=== PATIENT | female | born 2000 | race Caucasian/White ===

== ENCOUNTER 2018-01-25 06:21 | Emergency (ER) | payer SELFPAY ==
[2018-01-25] MEDS ORDERED: BUPIVACAINE 0.5% PF 10 ML VIAL ONE (07:00)
[2018-01-25] MEDS ORDERED: TETANUS & DIPHTHERIA TOX,ADULT 0.5 ML VIAL ONE (07:00)
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
--- NOTE | 2018-01-25 09:59 | ER ---
Nurse's Notes [facility] Name: Amber Owusu Age: 17 yrs Sex: Female : 2000 Arrival Date: 01/25/2018 Time: 06:25 Bed 8 Private MD: Diagnosis: Finger Laceration Presentation: 01/25 06:40 Presenting complaint: Patient states: Reports she cut her left ring finger when she was ea cutting lettuce. Transition of care: patient was not received from another setting of care. Complicating Factors: There are no complicating factors for this patient. Onset of symptoms was January 25, 2018. Risk Assessment: Do you want to hurt yourself or someone else? Patient reports no desire to harm self or others. Initial Sepsis Screen: Does the patient meet any 2 criteria? No. Patient's initial sepsis screen is negative. Does the patient have a suspected source of infection? No. Patient's initial sepsis screen is negative. Care prior to arrival: None. 06:40 Method Of Arrival: Ambulatory ea 06:40 Acuity: MARIPOSA 4 ea Triage Assessment: 06:44 General: Appears in no apparent distress. Behavior is appropriate for age, anxious. ea Pain: Complains of pain in palmar aspect of distal phalanx of left ring finger Pain currently is 8 out of 10 on a pain scale. Quality of pain is described as aching. EENT: No signs and/or symptoms were reported regarding the EENT system. Neuro: Level of Consciousness is awake, alert, obeys commands, Oriented to person, place, time, situation. Cardiovascular: Patient's skin is warm and dry. Respiratory: Airway is patent Respiratory effort is even, unlabored, Respiratory pattern is regular, symmetrical. GI: No signs and/or symptoms were reported involving the gastrointestinal system. : No signs and/or symptoms were reported regarding the genitourinary system. Derm: Skin is pink, warm \T\ dry. Injury Description: Laceration sustained to palmar aspect of distal phalanx of left ring finger is 0.5 to 2.5 cm long. Historical: - Allergies: 06:44 No Known Allergies; ea - Home Meds: 06:44 None [Active]; ea - PMHx: 06:44 None; ea - PSHx: 06:44 None; ea - Immunization history:: Last tetanus immunization: unknown. - Social history:: Smoking status: Patient/guardian denies using tobacco. - Ebola Screening: : No symptoms or risks identified at this time. Screenin:51 Abuse screen: Denies threats or abuse. Nutritional screening: No deficits noted. ea Tuberculosis screening: No symptoms or risk factors identified. Fall Risk None identified. Assessment: 06:53 Reassessment: See triage assessment.. Musculoskeletal: Circulation, motion, and ea sensation intact. Injury Description: Laceration sustained to palmar aspect of distal phalanx of left ring finger. 07:30 Reassessment: Patient appears in no apparent distress at this time. Patient and/or ph family updated on plan of care and expected duration. Pain level reassessed. Patient is alert, oriented x 3, equal unlabored respirations, skin warm/dry/pink. ERP at bedside for laceration repair. 08:07 Reassessment: Patient appears in no apparent distress at this time. Patient and/or ph family updated on plan of care and expected duration. Pain level reassessed. Patient is alert, oriented x 3, equal unlabored respirations, skin warm/dry/pink. Pt d/c home w/ family. Vital Signs: 06:45 BP 124 / 106; Pulse 76; Resp 20; Temp 97.4(O); Pulse Ox 100% ; Weight 77.56 kg; Height ea 5 ft. 7 in. (170.18 cm); Pain 8/10; 06:45 Body Mass Index 26.78 (77.56 kg, 170.18 cm) ea ED Course: 06:25 Patient arrived in ED. ds1 06:31 Grzegorz Hauser PA is PHCP. [facility] 06:31 Reji Simeon MD is Attending Physician. [facility] 06:38 Betty Dewitt RN is Primary Nurse. ea 06:40 Patient has correct armband on for positive identification. Placed in gown. Bed in low ea position. Call light in reach. Side rails up X 1. 06:40 Arm band placed on right wrist. Patient placed in an exam room, in the treatment room, ea on a stretcher, on pulse oximetry. 06:42 Triage completed. ea 07:30 Assist provider with laceration repair on palmar aspect of distal phalanx of left ring ph finger that was 2.5 cm. or less using sutures. Set up tray. Performed by Grzegorz BENDER Dressed with band aid, Patient tolerated well. 08:07 Patient did not have IV access during this emergency room visit. ph Administered Medications: 07:01 Drug: Tetanus-Diphtheria Toxoid Adult 0.5 ml {Transcribing Operator Head: [employer]. Exp: alex 03/20/2020. Lot #: [id number]. } Route: IM; Site: left deltoid; 07:30 Follow up: Response: No adverse reaction ph 07:20 Drug: Marcaine (0.5 %) 10 ml Volume: 10 ml; Route: Infiltration; ph 07:30 Follow up: Response: No adverse reaction; Pain is decreased ph Outcome: 07:42 Discharge ordered by . elpidio 08:09 Discharged to home ambulatory, with family. ph 08:09 Condition: good 08:09 Discharge instructions given to patient, Instructed on discharge instructions, follow up and referral plans. Demonstrated understanding of instructions, follow-up care. 08:11 Patient left the ED. ph Signatures: Grzegorz Hauser PA PA jmm Sanford, Demi ds1 Mira Del Valle, RN RN Betty Dewitt, CAROL MEDINA ea
[2018-01-25 10:06] VITALS: BP 124/106; TEMP 97.4; O2SAT 100
== END 2018-01-25 08:11 | disposition home or self-care (01) ==
LOC: ER 06:21
PROC: 0JQK0ZZ Repair Left Hand Subcutaneous Tissue and Fascia, Open Approach (ICD-10-PCS; principal; 2018-01-25)
DX: S61.215A Laceration without foreign body of left ring finger without damage to nail, initial encounter (principal); W26.0XXA Contact with knife, initial encounter; Y93.89 Activity, other specified; Y92.010 Kitchen of single-family (private) house as the place of occurrence of the external cause
CPT/HCPCS: 90714; 99283

== ENCOUNTER 2019-10-31 21:36 | Emergency (ER) | payer OTHER ==
--- OUTSIDE RECORDS SUMMARY | 2019-10-31 21:41 | XMS REPORT ---
:2000 Author Organization [facility] t Address [address] [place] [address] [place] [id number] Care Team Providers Name Role Phone Unavailable Unavailable Unavailable Problems This patient has no known problems. Allergies, Adverse Reactions, Alerts This patient has no known allergies or adverse reactions. Medications This patient has no known medications.
[2019-10-31] MEDS ORDERED: WATER FOR INJ,STERILE 10 ML ONE (21:49)
[2019-10-31] MEDS ORDERED: ZIPRASIDONE MESYLA 20 MG/VIAL IM ONE (21:49)
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
--- NOTE | 2019-11-01 12:59 | RAD REPORT ---
EXAM DESCRIPTION: CT - Head C Spine Mpr Wo Con - 11/01/2019 5:35 am CLINICAL HISTORY: The patient is 18 years old and is Female; PAIN TECHNIQUE: Axial computed tomography images of the head/brain and cervical spine without intravenous contrast. Sagittal and coronal reformatted images were created and reviewed. This CT exam was pe rformed using one or more of the following dose reduction techniques: automated exposure control, a djustment of the mA and/or kV according to patient size, and/or use of iterative reconstruction techn ique. DLP: 846 and 312 mGy*cm COMPARISON: None. FINDINGS: BRAIN: Unremarkable. No hemorrhage. No significant white matter disease. No edema . VENTRICLES: Unremarkable. No ventriculomegaly. SKULL: No acute fracture. SINUSES: Unremarkable as visualized. No acute sinusitis. MASTOID AIR CELLS: Unremarkable as visualized. No mastoid effusion. VERTEBRAE: Reversal of cervical lordosis centered at C5. No acute fracture. DISCS/SPINAL CANAL/NEURAL FORAMINA: No acute findings. No spinal canal stenosis. SOFT TISSUES: Right frontal hematoma. Minimal left frontal swelling. LUNG APICES: Apical lung zones are clear. IMPRESSION: 1. No acute intracranial abnormality. 2. No acute cervical spine fracture or subluxation. 3. Right frontal hematoma. Minimal left frontal swelling. 4. Reversal of cervical lordosis which may be due to muscle spasm. Electronically signed by: Justin Stephens DO 10/31/2019 10:53 PM CDT Due to temporary technical issues with the PACS/Fluency reporting system, reports are being signed by the in house radiologist as a courtesy to ensure prompt reporting. The interpreting radiologist is f ully responsible for the content of the report.
== END 2019-10-31 23:32 ==
LOC: ER 21:36
DX: R45.851 Suicidal ideations (principal); F31.9 Bipolar disorder, unspecified; W22.8XXA Striking against or struck by other objects, initial encounter; Y93.89 Activity, other specified; Y92.89 Other specified places as the place of occurrence of the external cause; Z72.0 Tobacco use
CPT/HCPCS: 70450; 72125; 96372; 99284; J3486

== ENCOUNTER 2020-04-04 16:50 | Emergency (ER) | payer OTHER ==
[2020-04-04] MEDS ORDERED: MORPHINE 4 MG/ML SYR ONE (19:52)
[2020-04-04] MEDS ORDERED: NA CHLORIDE 0.9% 1,000 ML ONE (19:52)
[2020-04-04] MEDS ORDERED: ONDANSETRON 4 MG/2 ML VIAL ONE (19:52)
[2020-04-04 20:00] LABS: Absolute Lymphocytes (CBC) 1.4 K/uL (0.7-4.9); Basophils % 0.3 % (0-1.3); Hematocrit 43.7 % (36.0-45.0); Lymphocytes % 7.9 % (15.3-44.8); MPV 9.2 fL (7.6-11.3); RBC Red Blood Cell Count 4.61 M/uL (3.86-4.86)
[2020-04-04 20:06] LABS: Urine Blood 1+ (NEG); Urine Glucose NEGATIVE (NEG); Urine Protein NEGATIVE (NEG); Urine Specific Gravity 1.025 (1.005-1.030)
[2020-04-04 20:18] LABS: ALT/SGPT 14 U/L (12-78); AST/SGOT 9 U/L (15-37); Albumin 4.6 g/dL (3.4-5.0); Alkaline Phosphatase 77 U/L (45-117); BUN Blood Urea Nitrogen 6 mg/dL (7-18); Bicarbonate 26 mmol/L (21-32); Bilirubin Direct 0.2 mg/dL (0-0.2); Bilirubin Total 0.6 mg/dL (0.2-1.0); Glucose Level 86 mg/dL (74-106); Lipase 40 U/L (73-393); Potassium 3.8 mmol/L (3.5-5.1); Protein, Total 8.2 g/dL (6.4-8.2); Sodium Level 138 mmol/L (136-145)
--- NOTE | 2020-04-04 21:06 | RAD REPORT ---
EXAM DESCRIPTION: CT - Stone Protocol - 04/04/2020 8:31 pm CLINICAL HISTORY: Abdominal pain./flank pain COMPARISON: 2012 TECHNIQUE: Computed axial tomography of the abdomen pelvis was obtained without oral or IV contrast. Lack of IV and oral contrast limits evaluation of solid organs, bowel, and vessels. Coronal reformat irving images were obtained and reviewed. All CT scans are performed using dose optimization technique as appropriate and may include automated exposure control or mA/KV adjustment according to patient size. FINDINGS: Small bilateral renal calculi. Minimal right hydronephrosis. 1 millimeter calcification ri ght pelvis. The right ureter is not well visualized in this region. The liver, spleen, pancreas and adrenals appear grossly normal There is no evidence of diverticulitis. The appendix appears normal. A small amount free fluid the pe lvis IMPRESSION: Small bilateral renal calculi. Minimal right hydronephrosis. 1 millimeter calcification right pelvis. It is uncertain if this repres ents a distal ureteral calculus as the right ureter is not well visualized in this region. Another co nsideration is that this represents a phlebolith
[2020-04-04] MEDS ORDERED: CEFTRIAXONE/SWI 1gm 1 GM/10 ML SYR ONE (21:07)
[2020-04-04 21:08] LABS: Blood Morphology Comment NOT SEEN (NOT SEEN); Platelet Estimate ADEQ; White Blood Cell Scan OK (OK)
--- NOTE | 2020-04-04 22:27 | ER ---
Nurse's Notes [facility] Name: Amber Owusu Age: 19 yrs Sex: Female : 2000 Arrival Date: 04/04/2020 Time: 16:50 Bed 14 Private MD: Diagnosis: Pyelonephritis;Kidney Stones;Sciatica Presentation: 04/04 17:04 Chief complaint: Patient states: "I just got some antibiotics from the tele doc and I jd3 don't feel like I am getting any better. also about a week ago I think I pulled a hamstring. It is getting harder to walk and even sit straight.". Coronavirus screen: At this time, the client does not indicate any symptoms associated with coronavirus-19. Ebola Screen: Patient negative for fever greater than or equal to 101.5 degrees Fahrenheit, and additional compatible Ebola Virus Disease symptoms. Initial Sepsis Screen: Does the patient meet any 2 criteria? No. Patient's initial sepsis screen is negative. Does the patient have a suspected source of infection? No. Patient's initial sepsis screen is negative. Risk Assessment: Do you want to hurt yourself or someone else? Patient reports no desire to harm self or others. Onset of symptoms was March 31, 2020. 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 - Social history:: Smoking status: Reported history of juuling and/or vaping. Screenin:25 Abuse screen: Denies threats or abuse. Denies injuries from another. Nutritional ca1 screening: No deficits noted. Tuberculosis screening: No symptoms or risk factors identified. Fall Risk IV access (20 points). Assessment: 19:25 General: Appears in no apparent distress. uncomfortable, Behavior is calm, cooperative, ca1 appropriate for age. Pain: Complains of pain in right lower quadrant Pain radiates to right low back Pain currently is 8 out of 10 on a pain scale. Pain began 5 days Is intermittent. Neuro: Level of Consciousness is awake, alert, obeys commands, Oriented to person, place, time, situation. Cardiovascular: Heart tones S1 S2 present Capillary refill < 3 seconds Patient's skin is warm and dry. Respiratory: Airway is patent Respiratory effort is even, unlabored, Respiratory pattern is regular, symmetrical, Breath sounds are clear bilaterally. GI: Abdomen is round non-distended, Bowel sounds present X 4 quads. Abd is soft and non tender X 4 quads. Reports nausea. : Urine is cloudy, Reports burning with urination, urgency, urinary frequency. EENT: No signs and/or symptoms were reported regarding the EENT system. Derm: Skin is intact, is healthy with good turgor. Musculoskeletal: Circulation, motion, and sensation intact. Capillary refill < 3 seconds. 20:57 Reassessment: Patient appears in no apparent distress at this time. Patient and/or ca1 family updated on plan of care and expected duration. Pain level reassessed. Patient is alert, oriented x 3, equal unlabored respirations, skin warm/dry/pink. 21:43 Reassessment: Patient appears in no apparent distress at this time. Patient and/or ca1 family updated on plan of care and expected duration. Pain level reassessed. Patient is alert, oriented x 3, equal unlabored respirations, skin warm/dry/pink. 22:41 Reassessment: Patient appears in no apparent distress at this time. Patient and/or jd3 family updated on plan of care and expected duration. Pain level reassessed. Patient is alert, oriented x 3, equal unlabored respirations, skin warm/dry/pink. Patient states feeling better. Vital Signs: 17:07 BP 124 / 84; Pulse 86; Resp 17 S; Temp 97.7(O); Pulse Ox 99% on R/A; Weight 70.31 kg jd3 (R); Height 5 ft. 8 in. (172.72 cm) (R); Pain 10/10; 19:42 BP 125 / 81; Pulse 79; Resp 15 S; Pulse Ox 99% on R/A; ca1 20:57 BP 120 / 87; Pulse 84; Resp 15 S; Pulse Ox 98% on R/A; ca1 21:43 BP 109 / 66; Pulse 89; Resp 18 S; Pulse Ox 99% on R/A; ca1 17:07 Body Mass Index 23.57 (70.31 kg, 172.72 cm) jd3 ED Course: 16:50 Patient arrived in ED. as 17:06 Triage completed. jd3 17:09 Arm band placed on. jd3 19:15 Heather Zheng RN is Primary Nurse. ca1 19:18 Kamran Singleton MD is Attending Physician. mh7 19:30 Patient has correct armband on for positive identification. Placed in gown. Bed in low ca1 position. Call light in reach. Side rails up X 1. Pulse ox on. NIBP on. 19:52 Initial lab(s) drawn, by me, sent to lab. Inserted saline lock: 20 gauge in right ca1 antecubital area, using aseptic technique. Blood collected. 19:52 No provider procedures requiring assistance completed. ca1 20:31 Stone Protocol In Process Unspecified. EDMS 22:25 Lisa Watkins MD is Referral Physician. 7 22:41 IV discontinued, intact, bleeding controlled, No redness/swelling at site. Pressure jd3 dressing applied. Administered Medications: 19:52 Drug: NS 0.9% 1000 ml Route: IV; Rate: 1000 ml; Site: right antecubital; ca1 20:53 Follow up: Response: No adverse reaction; IV Status: Completed infusion; IV Intake: ca1 1000ml 19:54 Drug: Zofran (Ondansetron) 4 mg Route: IVP; Site: right antecubital; ca1 20:53 Follow up: Response: No adverse reaction; Nausea is decreased ca1 19:56 Drug: morphine 4 mg {Note: rass 0.} Route: IVP; Site: right antecubital; ca1 20:53 Follow up: Response: No adverse reaction; Pain is decreased; RASS: Alert and Calm (0) ca1 20:57 Drug: Rocephin - (cefTRIAXone) 1 grams Route: IVPB; Infused Over: 30 mins; Site: right ca1 antecubital; 21:50 Follow up: Response: No adverse reaction; IV Status: Completed infusion jd3 Intake: 20:53 IV: 1000ml; Total: 1000ml. ca1 Outcome: 22:26 Discharge ordered by . 7 22:41 Discharged to home ambulatory, with friend. jd3 22:41 Condition: stable 22:41 Discharge instructions given to patient, friend, Instructed on discharge instructions, follow up and referral plans. medication usage, Demonstrated understanding of instructions, follow-up care, medications, Prescriptions given X 5 22:43 Patient left the ED. jd3 Signatures: Dispatcher [employer] Isabella Hoff Jonathon, RN RN jd3 Heather Zheng RN RN ca1 Kamran Singleton MD MD mh7
--- NOTE | 2020-04-04 22:27 | EDPHYS ---
Physician Documentation [facility] Name: Amber Owusu Age: 19 yrs Sex: Female : 2000 Arrival Date: 04/04/2020 Time: 16:50 Bed 14 Private MD: ED Physician Kamran Singleton HPI: 04/04 20:23 This 19 yrs old Female presents to ER via Ambulatory with complaints of Thigh mh7 Pain. 20:23 The patient presents with pain that is acute. The symptoms are located in the right mh7 flank. Onset: The symptoms/episode began/occurred 5 day(s) ago. The pain radiates to the right posterior thigh. Associated signs and symptoms: Pertinent positives: abdominal pain, dysuria, nausea, Pertinent negatives: chest pain, constipation, fever, headache, hematuria, incontinence, numbness, tingling, urinary retention, vomiting, weakness. The problem was sustained from twisting, doing splits. Modifying factors: The patient symptoms are alleviated by nothing, the patient symptoms are aggravated by movement, walking. Severity of symptoms: At their worst the symptoms were moderate, yesterday, in the emergency department the symptoms are unchanged. Patient states that she started having right buttock area pain that radiates to right thigh area after doing splits 5 days ago. She also reports having right lower back area pain and pain with urination that started 2 days ago. She started taking antibiotics yesterday without much improvement. She reports a history of sciatica and also frequent UTI's in the past.. 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 - Social history:: Smoking status: Reported history of juuling and/or vaping. ROS: 20:23 Constitutional: Negative for fever, chills, and weight loss, Eyes: Negative for injury, mh7 pain, redness, and discharge, ENT: Negative for injury, pain, and discharge, Neck: Negative for injury, pain, and swelling, Cardiovascular: Negative for chest pain, palpitations, and edema, Respiratory: Negative for shortness of breath, cough, wheezing, and pleuritic chest pain, Skin: Negative for injury, rash, and discoloration, Neuro: Negative for headache, weakness, numbness, tingling, and seizure, Psych: Negative for depression, anxiety, suicide ideation, homicidal ideation, and hallucinations, Allergy/Immunology: Negative for hives, rash, and allergies, Endocrine: Negative for neck swelling, polydipsia, polyuria, polyphagia, and marked weight changes, Hematologic/Lymphatic: Negative for swollen nodes, abnormal bleeding, and unusual bruising. Exam: 20:23 Head/Face: Normocephalic, atraumatic. Eyes: Pupils equal round and reactive to light, mh7 extra-ocular motions intact. Lids and lashes normal. Conjunctiva and sclera are non-icteric and not injected. Cornea within normal limits. Periorbital areas with no swelling, redness, or edema. Neck: Trachea midline, no thyromegaly or masses palpated, and no cervical lymphadenopathy. Supple, full range of motion without nuchal rigidity, or vertebral point tenderness. No Meningismus. Chest/axilla: Normal chest wall appearance and motion. Nontender with no deformity. No lesions are appreciated. Cardiovascular: Regular rate and rhythm with a normal S1 and S2. No gallops, murmurs, or rubs. Normal PMI, no JVD. No pulse deficits. Respiratory: Lungs have equal breath sounds bilaterally, clear to auscultation and percussion. No rales, rhonchi or wheezes noted. No increased work of breathing, no retractions or nasal flaring. 20:23 Skin: Warm, dry with normal turgor. Normal color with no rashes, no lesions, and no evidence of cellulitis. MS/ Extremity: Pulses equal, no cyanosis. Neurovascular intact. Full, normal range of motion. Neuro: Awake and alert, GCS 15, oriented to person, place, time, and situation. Cranial nerves II-XII grossly intact. Motor strength 5/5 in all extremities. Sensory grossly intact. Cerebellar exam normal. Normal gait. Psych: Awake, alert, with orientation to person, place and time. Behavior, mood, and affect are within normal limits. 20:23 Constitutional: The patient appears in no acute distress, alert, awake, uncomfortable. 20:23 Abdomen/GI: Inspection: abdomen appears normal, Bowel sounds: normal, in all quadrants, Palpation: mild abdominal tenderness, in the suprapubic area, Rectal exam: the exam is deferred, because of patient request, Indicators: McBurney's point is not tender, Spaulding's sign is negative, Rovsing's sign is negative, Obturator sign is negative, Psoas sign is negative, Liver: no appreciated palpable abnormalities, Hernia: not appreciated. 20:23 Back: pain, that is mild, ROM is painful, with all movement, normal spinal alignment noted, CVA tenderness, that is mild, is noted on the right, muscle spasm, is not present, Straight leg raises: right lower extremity illicits pain, at 45 degrees. Vital Signs: 17:07 BP 124 / 84; Pulse 86; Resp 17 S; Temp 97.7(O); Pulse Ox 99% on R/A; Weight 70.31 kg jd3 (R); Height 5 ft. 8 in. (172.72 cm) (R); Pain 10/10; 19:42 BP 125 / 81; Pulse 79; Resp 15 S; Pulse Ox 99% on R/A; ca1 20:57 BP 120 / 87; Pulse 84; Resp 15 S; Pulse Ox 98% on R/A; ca1 21:43 BP 109 / 66; Pulse 89; Resp 18 S; Pulse Ox 99% on R/A; ca1 17:07 Body Mass Index 23.57 (70.31 kg, 172.72 cm) jd3 MDM: 19:43 Patient medically screened. 7 22:23 Differential diagnosis: chronic back pain, Pyelonephritis Ureterolithiasis mh7 Sciatica. Data reviewed: vital signs, nurses notes, old medical records, lab test result(s), CBC, electrolytes, urinalysis, UPT: radiologic studies, CT scan. Data interpreted: Pulse oximetry: on room air is 99 %. Interpretation: normal. Counseling: I had a detailed discussion with the patient and/or guardian regarding: the historical points, exam findings, and any diagnostic results supporting the discharge/admit diagnosis, lab results, radiology results, the need for outpatient follow up, to return to the emergency department if symptoms worsen or persist or if there are any questions or concerns that arise at home. Response to treatment: the patient's symptoms have resolved after treatment, the patient's blood pressure is in an acceptable range, mental status has returned to baseline, the patient no longer shows bradycardia, the patient is not short of breath, the patient is not tachycardic, the patient's pain is gone, the patient's temperature has normalized, patient is well hydrated. 04/04 19:45 Order name: Basic Metabolic Panel; Complete Time: 20:33 mh7 04/04 19:45 Order name: CBC with Diff; Complete Time: 21:15 mh7 04/04 19:45 Order name: Hepatic Function; Complete Time: 20:33 mh7 04/04 19:45 Order name: Lipase; Complete Time: 20:33 mh7 04/04 19:56 Order name: Urine Culture ea 04/04 20:01 Order name: Urine --Ancillary (enter results); Complete Time: 20:33 tt3 04/04 20:01 Order name: Urine Dipstick--Ancillary (enter results); Complete Time: 20:33 tt3 04/04 20:20 Order name: Stone Protocol; Complete Time: 21:15 EDMS 04/04 21:08 Order name: CBC Smear Scan; Complete Time: 21:15 EDMS 04/04 19:45 Order name: IV Saline Lock; Complete Time: 19:53 mh7 04/04 19:45 Order name: Labs collected and sent; Complete Time: 19:53 mh7 04/04 19:45 Order name: Urine Dipstick-Ancillary (obtain specimen); Complete Time: 19:53 mh7 04/04 19:45 Order name: Urine Test (obtain specimen); Complete Time: 19:53 mh7 Administered Medications: 19:52 Drug: NS 0.9% 1000 ml Route: IV; Rate: 1000 ml; Site: right antecubital; ca1 20:53 Follow up: Response: No adverse reaction; IV Status: Completed infusion; IV Intake: ca1 1000ml 19:54 Drug: Zofran (Ondansetron) 4 mg Route: IVP; Site: right antecubital; ca1 20:53 Follow up: Response: No adverse reaction; Nausea is decreased ca1 19:56 Drug: morphine 4 mg {Note: rass 0.} Route: IVP; Site: right antecubital; ca1 20:53 Follow up: Response: No adverse reaction; Pain is decreased; RASS: Alert and Calm (0) ca1 20:57 Drug: Rocephin - (cefTRIAXone) 1 grams Route: IVPB; Infused Over: 30 mins; Site: right ca1 antecubital; 21:50 Follow up: Response: No adverse reaction; IV Status: Completed infusion jd3 Disposition: 04/04/20 22:26 Discharged to Home. Impression: Pyelonephritis, Kidney Stones, Sciatica. - Condition is Stable. - Discharge Instructions: Pyelonephritis, Adult, Arjv-su-Mked, Kidney Stones, [id number]-Jxdd, Sciatica, [id number]-[id number]. - Prescriptions for Zofran ODT 4 mg Oral tablet,disintegrating - place 1 tablet by TRANSLINGUAL route every 8 hours As needed; 10 tablet. Colace 100 mg Oral Tablet - take 1 tablet by ORAL route every 12 hours; 14 tablet. Ibuprofen 800 mg Oral Tablet - take 1 tablet by ORAL route every 8 hours As needed take with food; 15 tablet. Tylenol- Codeine #3 300-30 mg Oral Tablet - take 2 tablets by ORAL route every 6 hours As needed; 20 tablet. Cipro 500 mg Oral Tablet - take 1 tablet by ORAL route every 12 hours for 10 days; 20 tablet. - Work release form, Medication Reconciliation Form, Thank You Letter, Antibiotic Education, Prescription Opioid Use form. - Follow up: Private Physician; When: 1 - 2 days; Reason: Worsening of condition, Recheck today's complaints, Continuance of care, Re-evaluation by your physician. Follow up: Lisa Watkins MD; When: 1 - 2 days; Reason: Worsening of condition, Recheck today's complaints. - Problem is an acute exacerbation. - Symptoms have improved. Signatures: Dispatcher [employer] [facility] Andrew eD Paz RN RN jd3 Heather Zheng RN RN ca1 Kamran Singleton MD MD mh7 Corrections: (The following items were deleted from the chart) 20:20 19:56 Abdomen Pelvis Wo Con+CT.RAD.BRZ ordered. [facility] 22:43 22:26 04/04/2020 22:26 Discharged to Home. Impression: Pyelonephritis; Kidney Stones; jd3 Sciatica. Condition is Stable. Forms are Medication Reconciliation Form, Thank You Letter, Antibiotic Education, Prescription Opioid Use. Follow up: Private Physician; When: 1 - 2 days; Reason: Worsening of condition, Recheck today's complaints, Continuance of care, Re-evaluation by your physician. Follow up: Lisa Watkins; When: 1 - 2 days; Reason: Worsening of condition, Recheck today's complaints. Problem is an acute exacerbation. Symptoms have improved. mh7
[2020-04-04 23:05] VITALS: TEMP 97.7
[2020-04-04 23:13] VITALS: BP 109/66; O2SAT 99
--- OUTSIDE RECORDS SUMMARY | 2020-04-08 01:29 | XMS REPORT | Continuity of Care Document ---
:2000 Author Organization [facility] t Address [address] [place] [address] [place] [id number] Care Team Providers Name Role Phone Unavailable Unavailable Unavailable Problems This patient has no known problems. Allergies, Adverse Reactions, Alerts This patient has no known allergies or adverse reactions. Medications This patient has no known medications. Procedures This patient has no known procedures. Results This patient has no known results.
== END 2020-04-04 22:43 | disposition home or self-care (01) ==
LOC: ER 16:50
DX: N12 Tubulo-interstitial nephritis, not specified as acute or chronic (principal); M54.30 Sciatica, unspecified side; Z87.442 Personal history of urinary calculi; F31.9 Bipolar disorder, unspecified; F41.9 Anxiety disorder, unspecified; Z87.891 Personal history of nicotine dependence
CPT/HCPCS: 96365; 96361; 87088; 85025; 87086; 80048; 36415; 81025; 80076; 81003; 83690; 76377; 74176; 96375; 99284; J0696; J7030; J2405

== ENCOUNTER 2020-12-09 10:43 | Day surgery (SDC) | payer OTHER ==
[2020-12-08 16:39] LABS: Protime INR 0.99
[2020-12-08 16:41] LABS: Urine Appearance CLOUDY (Clear); Urine Bilirubin NEGATIVE (Negative); Urine Blood 2+ (Negative); Urine Color YELLOW (Yellow); Urine Glucose NEGATIVE (Negative); Urine Protein NEGATIVE (Negative); Urine pH 7.5 (5.0-7.0)
[2020-12-08 16:45] LABS: Urine Microscopic Reflex ORDER UMIC
[2020-12-08 16:45] LABS: Absolute Lymphocytes (CBC) 1.9 K/uL (0.7-4.9); BUN Blood Urea Nitrogen 11 mg/dL (7-18); Basophils % 0.5 % (0-1.3); Bicarbonate 29 mmol/L (21-32); Glucose Level 67 mg/dL (74-106); Hematocrit 37.8 % (36.0-45.0); Lymphocytes % 32.2 % (15.3-44.8); MPV 9.4 fL (7.6-11.3); Potassium 4.2 mmol/L (3.5-5.1); RBC Red Blood Cell Count 4.09 M/uL (3.86-4.86); Sodium Level 142 mmol/L (136-145)
[2020-12-08 16:51] LABS: Urine Bacteria <20 /HPF (<20); Urine RBC <5 /HPF (NONE SEEN)
--- NOTE | 2020-12-08 17:34 | RAD REPORT ---
EXAM DESCRIPTION: RAD - Chest Pa And Lat (2 Views) - 12/08/2020 5:25 pm CLINICAL HISTORY: Pre Op Chest pain. COMPARISON: <Comparisons> FINDINGS: The lungs are clear. The heart is normal in size. No displaced fractures. IMPRESSION: No acute or concerning finding suspected.
[2020-12-09] MEDS ORDERED: CEFAZOLIN/SWI 2gm 2 GM/20 ML SYR ONE (11:18)
[2020-12-09] MEDS ORDERED: Ringers Lactate 1,000 ML IV ONE (11:18)
[2020-12-09] MEDS ORDERED: propofoL 200 MG/20 ML VIAL IV ONE (11:26)
[2020-12-09] MEDS ORDERED: FENTANYL CITR 100 MCG/2 ML ONE (11:26)
[2020-12-09] MEDS ORDERED: ONDANSETRON 4 MG/2 ML VIAL ONE (11:27)
[2020-12-09] MEDS ORDERED: MIDAZOLAM HCL 2 MG/2 ML INJ ONE (11:27)
[2020-12-09] MEDS ORDERED: LIDOCAINE 1% MPF 5 ML VIAL ONE (11:32)
[2020-12-09] MEDS ORDERED: HYDROCODONE/APAP 5/325 MG TAB PO PRN (12:26)
[2020-12-09] MEDS ORDERED: PHENAZOPYRIDINE 100MG TAB PO ONE ×3 (12:26→13:31)
[2020-12-09] MEDS ORDERED: dexAMETHasone 10 MG/ML VIAL ONE (12:33)
[2020-12-09] MEDS ORDERED: KETOROLAC 30 MG/ML INJ ONE (12:34)
--- NOTE | 2020-12-09 12:36 | RAD REPORT ---
EXAM DESCRIPTION: RAD - Urethrocystogrphy Retrograde - 12/09/2020 12:25 pm CLINICAL HISTORY: ICD N 20.0 FINDINGS: 5 fluoroscopic spot images obtained. Fluoroscopy time minutes 0.15 seconds Left ureter was cannulated and contrast administered. Subsequently an ureteral stent was placed. Exam ination was performed by Dr Herrera
[2020-12-09] MEDS ORDERED: IBUPROFEN 200 MG TAB PO ONE ×2 (13:13→13:31)
[2020-12-09 13:21] VITALS: BP 109/74; TEMP 97.6; O2SAT 99
--- NOTE | 2020-12-09 21:49 | OP ---
Date of Procedure: 12/09/2020 Surgeon: TOMASZ CHATTERJEE Preoperative Diagnoses: 1.Left obstructive ureterolithiasis. 2.Left nephrolithiasis. Postoperative Diagnoses: 1.Left obstructive ureterolithiasis. 2.Left nephrolithiasis. 3.Left pelvocaliectasis/hydronephrosis. Principle Procedures: 1.Cystoscopy. 2.Left retrograde pyelography. 3.Left ureteral stent placement. Indication For Procedure: Ms. Owusu presented to [facility]rology Clinic with some nonspecific bothersome urol ogic symptoms. She also had some flank pain and underwent a CT scan back in September. The report was n ot available for my review, but on direct review of the imaging, she had the presence of a 6 x 4 mm p roximal ureteral calculus causing obstruction. It is unclear if this was missed on the initial repor t and read from [facility]. After counseling, she presents today for management of the obstructio n using a ureteral stent. Procedure In Detail: The patient was consented in the preoperative holding area before being transfe rred to the operative suite where general anesthesia was induced. She was given Ancef 2 g IV antimic robial prophylaxis, and pneumo boots were provided for DVT prophylaxis. She was placed in the lithot vincent position, padded and secured to the table appropriately. Her genitalia were prepped using Hibicl ens and draped in standard fashion. The case was begun using a 22-Spanish rigid cystoscope to gordo e the urethra and into the bladder with ease. The bladder was surveyed, and no mucosal lesions, fore ign bodies or stones were noted throughout. The ureteral orifices were orthotopic in location, and t he left ureteral orifice was cannulated using the tip of a 5-Spanish ureteral access catheter. Left retrograde pyelography: Using a 70:30 mixture of Omnipaque and saline, contrast was injected via the 5-Spanish ureteral access catheter and did propagate up a moderately dilated ureter to a point of visible filling defect at th e junction of L2-L3 within the mid proximal ureter consistent with calculus related obstruction. The re was delayed nephrogram with contrast injury and revealing pelvocaliectasis of a mild-moderate natu re. As a result, I passed a Sensor wire with minimal difficulty navigating beyond the point of obstructio n into the upper pole of the kidney and over the wire, passed a 6-Spanish x 26 cm double-J left ureter al stent with a coil observed fluoroscopically in the upper pole and 1 cystoscopically was formed wit hin the bladder. Her bladder was then decompressed of fluid and urine, and she was awakened from gen eral anesthesia. She was then taken out of the lithotomy position, transferred to a stretcher and th en transferred to the recovery room in good condition. Complications: None. Discharge Disposition: We will begin immediate rescheduling for definitive management of her proxima l left ureteral calculus with ureteroscopy and laser lithotripsy, preferably within the next 30 days. ADITHYA/JOON Voice ID: [id number] Report ID: [id number]
== END 2020-12-09 14:04 | disposition home or self-care (01) ==
LOC: OR 10:43
PROVIDERS: ATTEND Urology
PROC: 0T778DZ Dilation of Left Ureter with Intraluminal Device, Via Natural or Artificial Opening Endoscopic (ICD-10-PCS; principal; 2020-12-09 12:00)
DX: N20.2 Calculus of kidney with calculus of ureter (principal); Z20.822 Contact with and (suspected) exposure to COVID-19
CPT/HCPCS: 52332; 93005; 87088; 85025; 87086; 80048; 36415; 81025; 85610; 85730; 71046; 74450; 51610; U0003; J2704; J2250; J3010; J1100; J0690; J7120; J2405; 81003; 81015

== ENCOUNTER 2020-12-17 08:20 | Emergency (ER) | payer OTHER ==
--- NOTE | 2020-12-17 09:29 | RAD REPORT ---
EXAM DESCRIPTION: CT - Abdomen Pelvis Wo Contrast - 12/17/2020 9:12 am CLINICAL HISTORY: Abdominal pain. ABD PAIN COMPARISON: Stone Protocol dated 04/04/2020 TECHNIQUE: CT imaging of the abdomen and pelvis was performed without contrast. Solid organ, bowel a nd vascular assessment is limited due to lack of IV and oral contrast. All CT scans are performed using dose optimization technique as appropriate and may include automated exposure control or mA/KV adjustment according to patient size. FINDINGS: The lower lung justice are clear. The liver, spleen, pancreas, adrenal glands are within normal limits for a limited non-contrast exami nation. Punctate calculi are present in the calices of the right kidney. No obstructing right-sided calculus seen. A left double-J stent is in place. Inferiorly the stent is within the urinary bladder has an superior ly stent is in the inferior calyx left kidney. A oblong 6 mm stone is present along the course of the stent in proximal left ureter approximate L3 level. There is minimal left hydronephrosis. Additional punctate caliceal calculus left superior calyx also noted. No bowel obstruction, free air, free fluid or abscess. The appendix is normal. Multiple lumbar disc herniations are seen including large herniation at L1-2 with probable spinal can al stenosis. IMPRESSION: Left double-J stent is in place with 6 mm stone along the proximal left ureter. Minimal left hydronephrosis. Bilateral punctate caliceal nephrolithiasis. Multiple lumbar disc herniations suspected as detailed. A limited non-contrast examination was performed as detailed.
[2020-12-17] MEDS ORDERED: ONDANSETRON 4 MG/2 ML VIAL ONE (09:37)
[2020-12-17] MEDS ORDERED: MORPHINE 4 MG/ML SYR ONE (09:37)
[2020-12-17 09:55] LABS: Absolute Lymphocytes (CBC) 1.6 K/uL (0.7-4.9); Basophils % 0.5 % (0-1.3); Hematocrit 35.5 % (36.0-45.0); MPV 8.7 fL (7.6-11.3); RBC Red Blood Cell Count 3.84 M/uL (3.86-4.86)
[2020-12-17 10:13] LABS: ALT/SGPT 15 U/L (12-78); AST/SGOT 10 U/L (15-37); Albumin 3.6 g/dL (3.4-5.0); Alkaline Phosphatase 49 U/L (45-117); BUN Blood Urea Nitrogen 10 mg/dL (7-18); Bicarbonate 22 mmol/L (21-32); Bilirubin Direct 0.1 mg/dL (0-0.2); Bilirubin Total 0.4 mg/dL (0.2-1.0); Glucose Level 91 mg/dL (74-106); Lipase 34 U/L (73-393); Potassium 3.5 mmol/L (3.5-5.1); Protein, Total 6.7 g/dL (6.4-8.2); Sodium Level 140 mmol/L (136-145)
--- NOTE | 2020-12-17 11:25 | ER ---
Nurse's Notes [facility] Name: Amber Owusu Age: 20 yrs Sex: Female : 2000 Arrival Date: 12/17/2020 Time: 08:23 Bed 7 Private MD: Diagnosis: Urinary calculus, unspecified-left ureter Presentation: 12/17 08:50 Chief complaint: Patient states: Had stent placed in L ureter last for ph obstructing kidney stone, reports that initially pain improved but has become increasingly worse over the last 3 days, denies fever V/D, also denies difficulty urinating. Coronavirus screen: Client denies travel out of the [place] in the last 14 days. At this time, the client does not indicate any symptoms associated with coronavirus-19. Ebola Screen: No symptoms or risks identified at this time. Initial Sepsis Screen: Does the patient meet any 2 criteria? No. Patient's initial sepsis screen is negative. Does the patient have a suspected source of infection? No. Patient's initial sepsis screen is negative. Risk Assessment: Do you want to hurt yourself or someone else? Patient reports no desire to harm self or others. Onset of symptoms was December 17, 2020. 08:50 Method Of Arrival: Ambulatory ph 08:50 Acuity: MARIPOSA 3 ph Historical: - Allergies: 08:57 No Known Allergies; ph - Home Meds: 08:57 Buspirone Oral [Active]; ph - PMHx: 08:57 ADD/ADHD; Anxiety; Bipolar disorder; Depression; ph - Immunization history:: Adult Immunizations unknown, Client reports having NOT received the Covid vaccine. - Social history:: Smoking status: Reported history of juuling and/or vaping. - Family history:: not pertinent. Screenin:55 Abuse screen: Denies threats or abuse. Denies injuries from another. Nutritional ph screening: No deficits noted. Tuberculosis screening: No symptoms or risk factors identified. Fall Risk None identified. Assessment: 08:57 General: Appears in no apparent distress. uncomfortable, slender, well groomed, ph Behavior is cooperative, appropriate for age, crying. Pain: Complains of pain in left lower quadrant, left lower back Pain radiates to left leg. Neuro: Level of Consciousness is awake, alert, obeys commands, Oriented to person, place, time, situation. Cardiovascular: Capillary refill < 3 seconds in bilateral fingers Patient's skin is warm and dry. Respiratory: Airway is patent Respiratory effort is even, unlabored. GI: Reports lower abdominal pain, nausea, Patient currently denies diarrhea, vomiting. : Reports pain lower quadrant(s) in lower back with urination, Denies inability to void. Derm: Skin is intact, Skin is pink, warm \T\ dry. Musculoskeletal: Circulation, motion, and sensation intact. Range of motion: intact in all extremities. Vital Signs: 08:50 BP 125 / 88; Pulse 71; Resp 18; Temp 98.0; Pulse Ox 100% on R/A; Weight 72.57 kg; ph Height 5 ft. 8 in. (172.72 cm); 10:30 BP 118 / 68; Pulse 68; Resp 18; Pulse Ox 100% on R/A; ph 11:30 BP 112 / 78; Pulse 68; Resp 18; Pulse Ox 99% on R/A; ph 08:50 Body Mass Index 24.33 (72.57 kg, 172.72 cm) ph ED Course: 08:23 Patient arrived in ED. ds1 08:50 Mira Del Valle, CAROL is Primary Nurse. ph 08:54 Emily Subramanian MD is Attending Physician. ma2 08:55 Triage completed. ph 08:55 Arm band placed on Patient placed in an exam room, on pulse oximetry. ph 08:55 Patient has correct armband on for positive identification. Bed in low position. Call ph light in reach. Side rails up X 1. Pulse ox on. NIBP on. Door closed. Noise minimized. Warm blanket given. 09:12 CT Abd/Pelvis - Without Contrast In Process Unspecified. EDMS 11:23 Yair Herrera MD is Referral Physician. ma2 12:00 No provider procedures requiring assistance completed. IV discontinued, intact, ph bleeding controlled, No redness/swelling at site. Pressure dressing applied. Administered Medications: 09:32 Drug: Zofran (Ondansetron) 4 mg Route: IVP; Site: right wrist; ph 17:57 Follow up: Response: No adverse reaction ph 09:35 Drug: morphine 4 mg Route: IVP; Site: right wrist; ph 10:30 Follow up: Response: No adverse reaction; Pain is decreased ph Outcome: 11:24 Discharge ordered by MD. colón 12:08 Patient left the ED. ph 12:08 Discharged to home ambulatory. ph 12:08 Condition: good 12:08 Discharge instructions given to patient, Instructed on discharge instructions, follow up and referral plans. medication usage, Demonstrated understanding of instructions, follow-up care, medications, Prescriptions given X 3. Signatures: Dispatcher [employer] [facility] Vani Ray ds1 Mira Del Valle RN RN Emily Subramanian MD MD ma2
--- NOTE | 2020-12-17 11:25 | EDPHYS ---
Physician Documentation [facility] Name: Amber Owusu Age: 20 yrs Sex: Female : 2000 Arrival Date: 12/17/2020 Time: 08:23 Bed 7 Private MD: ED Physician Emily Subramanian HPI: 12/17 11:21 This 20 yrs old Female presents to ER via Ambulatory with complaints of Back ma2 Pain, Leg Pain. 11:21 The patient presents with pain that is acute. Onset: The symptoms/episode ma2 began/occurred gradually, 2 day(s) ago. Associated signs and symptoms: Pertinent negatives: fever, hematuria, incontinence. Severity of symptoms: At their worst the symptoms were mild, in the emergency department the symptoms are unchanged. The patient has experienced similar episodes in the past, no lower back pain or midline tenderness, pain not worse with movement no urinary or bowel incontinence, had ureteric stent placed 1 week ago for ureteric stone . Historical: - Allergies: 08:57 No Known Allergies; ph - Home Meds: 08:57 Buspirone Oral [Active]; ph - PMHx: 08:57 ADD/ADHD; Anxiety; Bipolar disorder; Depression; ph - Immunization history:: Adult Immunizations unknown, Client reports having NOT received the Covid vaccine. - Social history:: Smoking status: Reported history of juuling and/or vaping. - Family history:: not pertinent. ROS: 11:21 Constitutional: Negative for fever, chills, and weight loss. ma2 11:21 All other systems are negative. ma2 Exam: 11:21 Constitutional: This is a well developed, well nourished patient who is awake, alert, ma2 and in no acute distress. Chest/axilla: Normal chest wall appearance and motion. Nontender with no deformity. No lesions are appreciated. Cardiovascular: Regular rate and rhythm with a normal S1 and S2. No gallops, murmurs, or rubs. Normal PMI, no JVD. No pulse deficits. Respiratory: Lungs have equal breath sounds bilaterally, clear to auscultation and percussion. No rales, rhonchi or wheezes noted. No increased work of breathing, no retractions or nasal flaring. Abdomen/GI: Soft, non-tender, with normal bowel sounds. No distension or tympany. No guarding or rebound. No evidence of tenderness throughout. Back: No spinal tenderness. No costovertebral tenderness. Full range of motion. Skin: Warm, dry with normal turgor. Normal color with no rashes, no lesions, and no evidence of cellulitis. MS/ Extremity: Pulses equal, no cyanosis. Neurovascular intact. Full, normal range of motion. Neuro: Awake and alert, GCS 15, oriented to person, place, time, and situation. Cranial nerves II-XII grossly intact. Motor strength 5/5 in all extremities. Sensory grossly intact. Cerebellar exam normal. Normal gait. Vital Signs: 08:50 BP 125 / 88; Pulse 71; Resp 18; Temp 98.0; Pulse Ox 100% on R/A; Weight 72.57 kg; ph Height 5 ft. 8 in. (172.72 cm); 10:30 BP 118 / 68; Pulse 68; Resp 18; Pulse Ox 100% on R/A; ph 11:30 BP 112 / 78; Pulse 68; Resp 18; Pulse Ox 99% on R/A; ph 08:50 Body Mass Index 24.33 (72.57 kg, 172.72 cm) ph MDM: 08:54 Patient medically screened. ma2 11:21 Differential diagnosis: Ligament Injury Osteoarthritis Pyelonephritis sprain. Data ma2 reviewed: vital signs, nurses notes. Counseling: I had a detailed discussion with the patient and/or guardian regarding: the historical points, exam findings, and any diagnostic results supporting the discharge/admit diagnosis, the presence of at least one elevated blood pressure reading (>120/80) during this emergency department visit, the need for outpatient follow up. Response to treatment: the patient's symptoms have markedly improved after treatment. 12/17 08:57 Order name: Basic Metabolic Panel; Complete Time: 10:37 ma2 12/17 08:57 Order name: CBC with Diff; Complete Time: 09:57 ma2 12/17 08:57 Order name: Hepatic Function; Complete Time: 10:37 ma2 12/17 08:57 Order name: Lipase; Complete Time: 10:37 ma2 12/17 08:57 Order name: CT Abd/Pelvis - Without Contrast; Complete Time: 09:57 ma2 12/17 08:57 Order name: IV Saline Lock; Complete Time: 08:59 ma2 12/17 08:57 Order name: Labs collected and sent; Complete Time: 09:52 ma2 12/17 08:57 Order name: Urine Dipstick-Ancillary (obtain specimen); Complete Time: 10:52 ma2 Administered Medications: 09:32 Drug: Zofran (Ondansetron) 4 mg Route: IVP; Site: right wrist; ph 17:57 Follow up: Response: No adverse reaction ph 09:35 Drug: morphine 4 mg Route: IVP; Site: right wrist; ph 10:30 Follow up: Response: No adverse reaction; Pain is decreased ph Disposition: 12/17/20 11:24 Discharged to Home. Impression: Urinary calculus, unspecified - left ureter. - Condition is Stable. - Discharge Instructions: Kidney Stones, Renal Colic, Lithotripsy. - Prescriptions for Flomax 0.4 mg Oral Capsule, Sust. Release 24 hr - take 1 capsule by ORAL route once daily 1/2 hour following the same meal each day; 30 capsule. Diclofenac Sodium 75 mg Oral Tablet Sustained Release - take 1 tablet by ORAL route 2 times per day; 30 tablet. Cyclobenzaprine 10 mg Oral Tablet - take 1 tablet by ORAL route every 8 hours As needed; 30 tablet. - Medication Reconciliation Form, Thank You Letter, Antibiotic Education, Prescription Opioid Use, Work release form form. - Follow up: Private Physician; When: Tomorrow; Reason: If symptoms return. Follow up: Yair Herrera MD; When: Tomorrow; Reason: If symptoms return. - Notes: 1. folow up with urologist for further evaluation 2. follow up with primary care doctor for MRI back if pain continues Signatures: Dispatcher [employer] Mira Lew RN RN ph Emily Subramanian MD MD nv2 Corrections: (The following items were deleted from the chart) 12:08 11:24 12/17/2020 11:24 Discharged to Home. Impression: Urinary calculus, unspecified - ph left ureter. Condition is Stable. Prescriptions for Flomax 0.4 mg Oral Capsule, Sust. Release 24 hr - take 1 capsule by ORAL route once daily 1/2 hour following the same meal each day; 30 capsule, Diclofenac Sodium 75 mg Oral Tablet Sustained Release - take 1 tablet by ORAL route 2 times per day; 30 tablet. and Forms are Medication Reconciliation Form, Thank You Letter, Antibiotic Education, Prescription Opioid Use. Follow up: Private Physician; When: Tomorrow; Reason: If symptoms return. Follow up: Yair Herrera; When: Tomorrow; Reason: If symptoms return. ma2
[2020-12-17 12:22] VITALS: BP 125/88; TEMP 98; O2SAT 100
== END 2020-12-17 12:08 | disposition home or self-care (01) ==
LOC: ER 08:20
DX: N13.2 Hydronephrosis with renal and ureteral calculous obstruction (principal); Z96.0 Presence of urogenital implants; F90.9 Attention-deficit hyperactivity disorder, unspecified type; F41.9 Anxiety disorder, unspecified; F31.9 Bipolar disorder, unspecified; F17.290 Nicotine dependence, other tobacco product, uncomplicated
CPT/HCPCS: 85025; 80048; 36415; 80076; 83690; 74176; J2405; 96374; 96375; 99284

== ENCOUNTER 2020-12-28 08:55 | Day surgery (SDC) | payer OTHER ==
[2020-12-27 10:57] LABS: Absolute Lymphocytes (CBC) 1.2 K/uL (0.7-4.9); Basophils % 0.7 % (0-1.3); Hematocrit 38.7 % (36.0-45.0); Lymphocytes % 36.2 % (15.3-44.8); RBC Red Blood Cell Count 4.18 M/uL (3.86-4.86)
[2020-12-27 11:04] LABS: Protime INR 0.98
[2020-12-27 11:16] LABS: BUN Blood Urea Nitrogen 16 mg/dL (7-18); Bicarbonate 29 mmol/L (21-32); Glucose Level 90 mg/dL (74-106); Potassium 3.7 mmol/L (3.5-5.1); Sodium Level 142 mmol/L (136-145)
[2020-12-28] MEDS ORDERED: Ringers Lactate 1,000 ML IV ONE (09:24)
[2020-12-28] MEDS ORDERED: dexAMETHasone 10 MG/ML VIAL ONE (09:35)
[2020-12-28] MEDS ORDERED: FENTANYL CITR 100 MCG/2 ML ONE (09:35)
[2020-12-28] MEDS ORDERED: MIDAZOLAM HCL 2 MG/2 ML INJ ONE (09:35)
[2020-12-28] MEDS ORDERED: propofoL 200 MG/20 ML VIAL IV ONE (09:35)
[2020-12-28] MEDS ORDERED: LIDOCAINE 1% MPF 5 ML VIAL ONE (09:35)
[2020-12-28] MEDS ORDERED: ONDANSETRON 4 MG/2 ML VIAL ONE (09:35)
[2020-12-28] MEDS ORDERED: CEFTRIAXONE/SWI 1gm 1 GM/10 ML SYR IV ONE (10:30)
[2020-12-28] MEDS ORDERED: HYDROCODONE/APAP 5/325 MG TAB PO PRN (11:27)
[2020-12-28] MEDS ORDERED: PHENAZOPYRIDINE 100MG TAB PO ONE ×2 (11:27→12:36)
[2020-12-28] MEDS ORDERED: KETOROLAC 30 MG/ML INJ ONE (11:28)
[2020-12-28] MEDS ORDERED: Mastisol Adhesive Liq ONE (11:29)
--- NOTE | 2020-12-28 12:24 | RAD REPORT ---
EXAM DESCRIPTION: RAD - Urography Retrograde - 12/28/2020 11:27 am FINDINGS: There are total of 9 KUB images obtained during fluoroscopic assisted placement or positio zoya of a left ureteral stent. No suspicious or unexpected finding. Fluoro time was 0.09 minutes.
[2020-12-28] MEDS ORDERED: HYDROCODONE/APAP 5/325 MG TAB ONE (12:36)
--- NOTE | 2020-12-28 13:20 | OP ---
Date of Procedure: 12/28/2020 Surgeon: TOMASZ CHATTERJEE Preoperative Diagnosis: Left ureterolithiasis. Postoperative Diagnosis: Left ureterolithiasis. Principal Procedures: 1.Cystoscopy. 2.Left ureteroscopy with basketing and laser lithotripsy. 3.Left ureteral stent exchange. Indication For Procedure: Ms. Owusu presented initially to the Urology Clinic with persistent pain an d the presence of a calculus that was missed on the initial report of her imaging via radiology read. I surmised her pain was likely due to persistent and ongoing obstruction and a left-sided hydroneph rosis and placed a left ureteral stent. The patient presents today for definitive management of the stone which was visible and radio-opaque on the fluoroscopic imaging. Despite the stent being in vinod ce, the patient was somewhat miserable with chronic dysuria and spasmodic discomfort, persistent. Lashell abbott was seen as an outpatient with nurse practitioner, Sylvain on 12/13/2020, where urinalysis and cul ture were unremarkable for infection. She did receive some relief with antispasmodic pain medication s, and her most recent urine culture taken yesterday returned mixed trudi only. Procedure In Detail: The patient was consented in the preoperative holding area before being transfe rred to the operative suite where general anesthesia was induced. She was given 1 g ceftriaxone IV a ntimicrobial prophylaxis because the culture was still pending as of the start of the surgery. Pneum oboots were provided for DVT prophylaxis. She was placed in the lithotomy position, padded and secur ed to the table appropriately. Her genitalia were prepped using Hibiclens and draped in standard fas hion. The case was begun using a 22-Portuguese rigid cystoscope to traverse the urethra and into the saige dder. The left ureteral stent was noted to emanate from the ureteral orifice on the left side, and w as grasped using an alligator grasper and delivered to the meatus with ease. A Sensor wire was passe d via the stent into the collecting system with a coil observed fluoroscopically. A dual-lumen lonnie ter was then passed over the indwelling wire and a bolus of contrast did confirm the appropriate intr aluminal presence of the wires. The stone was similarly still visible within the proximal ureter flu oroscopically. As a result, I removed the dual-lumen catheter and under direct vision passed a semi- rigid ureteroscope into the mid proximal ureter where the stone was just visualized. I then employed a 0 tipped 2.4 cm Nitinol basket to grasp the stone from its proximal ureteral location and deliver it down into the distal ureter where it met a point of resistance. As a result, I then attempted to remove the basket, but it would not dislodge from around the stone; so, I employed a 271 nm laser fib er at power settings of 0.8 joules and 10 hertz and quickly fragmented the stone in half, which then allowed me to remove the fragments using the basket intact. These were sent for chemical analysis. I then again performed ureteroscopy under direct vision all the way into the proximal ureter at the U PJ on the left side and surveyed for any point of injury, stricture, or residual calculus. When none of the above were noted, ureteroscopy was concluded. I then backloaded the cystoscope over the safe ty wire and passed a 6-Portuguese by 26 cm double-J left ureteral stent with a coil observed fluoroscopic ally within the upper pole. An additional coil was cystoscopically formed within the bladder and the stent was left on its tether. Her bladder was then decompressed off fluid and urine, and Mastisol a nd Steri-Strips were used to tether the stent to her introitus. The patient was then taken out of th e lithotomy position, awakened from general anesthesia, transferred to a stretcher, and then transfer red to the recovery room in good condition. Complications: None. Discharge Disposition: She will follow up in the Urology Clinic on either of this week or of next week with nurse practitionerSylvain to have the ureteral stent removed on its tet her. This may potentially be done with 1 of the medical assistance with my supervision. Subsequent followup should be determined if she is a recurrent stone former to occur about 2 to 3 months from no w prior to which she should obtain a metabolic stone profile assessment by performing two 24-hour uri ne assessments via [employer] no sooner than 1 month from the date of surgery, but at least 1 month prior to followup. WR/MODL Voice ID: [id number] Report ID: [id number]
[2020-12-28 13:58] VITALS: BP 114/81; TEMP 97.2; O2SAT 100
== END 2020-12-28 12:53 | disposition home or self-care (01) ==
LOC: OR 08:55
PROVIDERS: ATTEND Urology
PROC: 0T778DZ Dilation of Left Ureter with Intraluminal Device, Via Natural or Artificial Opening Endoscopic (ICD-10-PCS; 2020-12-28)
PROC: 0TC78ZZ Extirpation of Matter from Left Ureter, Via Natural or Artificial Opening Endoscopic (ICD-10-PCS; principal; 2020-12-28 09:30)
DX: N20.1 Calculus of ureter (principal); F41.8 Other specified anxiety disorders; F90.9 Attention-deficit hyperactivity disorder, unspecified type
CPT/HCPCS: 87088; 85025; 87086; 80048; 36415; 81025; 85610; 88300; 85730; 82360; 74420; 52356; J2704; J2250; J3010; J1100; J0696; J7120; J2405

== ENCOUNTER 2022-12-15 16:16 | Emergency (ER) | payer BC, OTHER ==
--- OUTSIDE RECORDS SUMMARY | 2022-12-15 16:20 | XMS REPORT | Continuity of Care Document ---
:2000 Author Organization [facility] t Address [address] [place] [address] Care Team Providers Name Role Phone Lesa Núñez Attending Clinician Unavailable Lesa Núñez Admitting Clinician Unavailable Payers Payer Name Policy Type Policy Number Effective Date Expiration Date S ource Problems This patient has no known problems. Allergies, Adverse Reactions, Alerts Allergy Allergy Status Severity Reaction(s) Onset Inactive Treating Comm ents Source Name Type Date Date Clinician No Known DA Active [facility]-18 Clear s 00:00: [place] 00 [facility] No Known DA Active U [facility] 03-18 Clear s 00:00: [place] 00 [facility] Medications This patient has no known medications. Procedures This patient has no known procedures. Encounters Start End Encounter Admission Attending Care Care Encounter Source Date/Time Date/Time Type Type Clinicians Facility Department ID 2021-03-18 2021-03-24 Inpatient EL Niya, [facility]G [id number] [facility] 08:45:00 11:23:00 Lesa [facility] 2021-03-18 2021-03-18 Outpatient ANDERS NúñezCL LABO [id number] [facility] 15:34:00 15:34:00 Lesa 55 [facility] Results Test Description Test Time Test Comments Results Result [facility] e Comments - XR SPINE 1 V 2021-03-25 SPEC LEVEL 07:42:00 [facility] : 2000 Sex: F Patient Name: TIKI BARNARD Unit No: [id number] EXAMS: CPT CODE: [id number] XR SPINE 1 V SPEC LEVEL 17496 INTRAOPERATIVE LATERAL LUMBAR SPINE Film 1. A marker is posterior to L2. Film 2. A surgical instrument is posterior to L1-2. Film 3. Surgical instruments are posterior to L1-2 and L2 at 0742 Reported and signed by: Octavio Morrow MD CC: Lesa Núñez MD Technologist: TRACE SINGLETON (RT.R) Transcribed D/ (0742) Jose AntonioL [facility] NAME: TIKI BARNARD [address] [place] [address] PHYS: Lesa Sr MD : 2000 AGE: 20 SEX: F [place] [address] LOC: YBhavinMARZENA PHONE #: [phone] EXAM DATE: 03/24/2021 STATUS: [facility] FAX #: [phone] RAD #: D/C DT PAGE 1 Signed Report Patient Name: TIKI BARNARD Unit No: [id number] EXAMS: CPT CODE: [id number] XR SPINE 1 V SPEC LEVEL 11381 (Continued) Orig Print D/T: S: 03/25/2021 (0745) [facility] NAME: TIKI BARNARD [address] [place] [address] PHYS: Lesa Sr MD : 2000 AGE: 20 SEX: F [place] [address] LOC: STEVO PHONE #: [phone] EXAM DATE: 03/24/2021 STATUS: [facility] FAX #: [phone] RAD #: D/C DT PAGE 2 Signed Report - XR SPINE 1 V 2021-03-25 SPEC LEVEL 07:42:00 [facility] : 2000 Sex: F Patient Name: TIKI BARNARD Unit No: [id number] EXAMS: CPT CODE: [id number] XR SPINE 1 V SPEC LEVEL 67290 INTRAOPERATIVE LATERAL LUMBAR SPINE Film 1. A marker is posterior to L2. Film 2. A surgical instrument is posterior to L1-2. Film 3. Surgical instruments are posterior to L1-2 and L2 at 0742 Reported and signed by: Octavio Morrow MD CC: Lesa Núñez MD Technologist: TRACE SINGLETON (RT.R) Transcribed D/ (0742) t.SDR.L [facility] NAME: TIKI BARNARD [address] [facility] [address] PHYS: SERGEI - Lesa Núñez MD : 2000 AGE: 20 SEX: F [place], [place] [address] LOC: STEVO PHONE #: [phone] EXAM DATE: 03/24/2021 STATUS: [facility] FAX #: [phone] RAD #: D/C DT PAGE 1 Signed Report Patient Name: TIKI BARNARD Unit No: [id number] EXAMS: CPT CODE: [id number] XR SPINE 1 V SPEC LEVEL 79454 (Continued) Orig Print D/T: S: 03/25/2021 (0745) [facility] NAME: TIKI BARNARD [address] [place] [address] PHYS: Lesa Sr MD : 2000 AGE: 20 SEX: F [place] [address] LOC: STEVO PHONE #: [phone] EXAM DATE: 03/24/2021 STATUS: [facility] FAX #: [phone] RAD #: D/C DT PAGE 2 Signed Report - XR SPINE 1 V 2021-03-25 SPEC LEVEL 07:42:00 [facility] : 2000 Sex: F Patient Name: TIKI BARNARD Unit No: [id number] EXAMS: CPT CODE: [id number] XR SPINE 1 V SPEC LEVEL 42307 INTRAOPERATIVE LATERAL LUMBAR SPINE Film 1. A marker is posterior to L2. Film 2. A surgical instrument is posterior to L1-2. Film 3. Surgical instruments are posterior to L1-2 and L2 at 0742 Reported and signed by: Octavio Morrow MD CC: Lesa Núñez MD Technologist: TRACE SINGLETON (RT.R) Transcribed D/ (0742) [place] [facility] NAME: TIKI BRANARD [address] [place] [address] PHYS: Lesa Sr MD : 2000 AGE: 20 SEX: F [place] [address] LOC: STEVO PHONE #: [phone] EXAM DATE: 03/24/2021 STATUS: [facility] FAX #: [phone] RAD #: D/C DT PAGE 1 Signed Report Patient Name: TIKI BARNARD Unit No: [id number] EXAMS: CPT CODE: [id number] XR SPINE 1 V SPEC LEVEL 51854 (Continued) Orig Print D/T: S: 03/25/2021 (0745) [facility] NAME: TIKI BARNARD [address] [facility] PHYS: GISTA - Lesa Núñez MD : 2000 AGE: 20 SEX: F [place] [address] LOC: STEVO PHONE #: [phone] EXAM DATE: 03/24/2021 STATUS: [facility] FAX #: [phone] RAD #: D/C DT PAGE 2 Signed Report Novel Coronavirus 2018 Inhouse 2021-03-19 22:44:00 Test Item Value Reference Range Interpretation Comme nts Novel Coronavirus 2018 Negative Negative Posit jelena results are indicative of the Inhouse (test code = presenc e [id number] RNA, clinical COVNONPUI) correlation wit h patient historyand other diagnosti c information is necessary to de terminepatient infection status. Positiv e results do not rule outbacterial in fection or co-infection with other viru ses. Negative results do not preclude SA RS-CoV-2 infection andshould not b e used as the sole basis for patient man agementdecisions. Negative result s must be combined with otherclinical o bservations, patient history, and ep idemiologicalinformation. Detection of SA RS-CoV-2 RNA may be affected bysamp le collection methods, storage conditi ons, and/or stageof infection. Mouna l RNA mutations, vaccinations, a ntiviraltherapeutics, antibiotics, ch emotherapeutic orimmunosuppres bela drugs have not been evaluated for e ffectson detection. Results are for the identification of SARS-CoV-2 RNA usingthe boarding pass000 System under th e FDA Emergency UseAuthorizatio n. The testing is performed by reece soliz in the procedures for the Conley M2000 moleculardiagno stic SARS-CoV-2 assay in vitro. Novel Coronavirus 2018 [id number] 22:43:00 Test Item Value Reference Range Interpretation Comments Novel Coronavirus Negative Negative Positive r esults are 2019 Inhouse (test indicativ e of the presence code = COVNONPUI) ofSARS-CoV -2 RNA, clinical correlation wit h patient historyand othe r diagnostic info rmation is necessary to determinepatien t infection status. Positiv e results do not rule out bacterial infection or co -infection with other viru ses. Negative result s do not preclude SARS-C oV-2 infection andsh ould not be used as the don e basis for patient managementdecis ions. Negative result s must be combined with otherclinical observations, p atient history, and epidemiological information . Detection of SARS-CoV-2 RNA may be affe cted bysample collec tion methods, storag e conditions, and /or stageof infection. Mouna l RNA mutations, vacc inations, antiviraltherap eutics, antibiotics, chemotherapeuti c orimmunosuppres bela drugs have not been e valuated for effectson d etection. Results are for the identification of SARS-CoV-2 RNA usingthe Conley M2000 Sy stem under the FDA Emergen cy UseAuthorizatio n. The testing is perf ormed by justino gaitan in the procedures for the Conley M2000 molecular diagnostic SARS-CoV-2 assa y in vitro. CBC W/MANUAL [id number] 10:12:00 Test Item Value Reference Range Interpretation Comments WHITE BLOOD CELL 13.7 K/mm3 5.8-11.0 H (test code = WBC) RED BLOOD CELL (test 4.04 M/mm3 4.2-5.4 L code = RBC) HEMOGLOBIN (test 13.1 g/dL 12-16 N code = HGB) HEMATOCRIT (test 37.9 % 37-47 N code = HCT) MEAN CELL VOLUME 94 fL 80-98 N (test code = MCV) MEAN CELL HGB (test 32.4 pg 27-34 N code = MCH) MEAN CELL HGB 34.6 g/dL 30.8-34.1 H CONCENTRATION (test code = MCHC) RED CELL 12.0 % 11-16 N DISTRIBUTION WIDTH (test code = RDW) PLT (test code = 209 K/mm3 130-400 N PLT) MEAN PLATELET VOLUME 10.0 fL 8.9-12.1 N (test code = MPV) STAIN ACCEPTABILITY STAIN ACCEPTABLE (test code = STN ACCEPTABLE) CELLS COUNTED (test 100 See_Comment [Automa irving code = TCC) message] The system which generated this result transmitted reference range : 100. The reference range was not used to interpret this result as normal/abnormal . SEGMENTED 36 % 50-65 L NEUTROPHILS (test code = SEG) LYMPHOCYTE (test 49 % 20-40 H code = LYMPH) NUCLEATED RED BLOOD 0 % 0-0 N CELL (test code = NRBC) BAND NEUTROPHIL 7 % 0-10 N (test code = BAND) MONOCYTE (test code 2 % 2-9 N = MON) EOSINOPHIL (test 3 % 1-3 N code = EOS) METAMYELOCYTE (test 2 % 0-0 H code = META) MYELOCYTE (test code 1 % 0-0 H = MYELO) BASIC METABOLIC [id number] 10:08:00 Test Item Value Reference Range Interpretation Comments SODIUM (test code = 137 mmol/L 136-145 N NA) POTASSIUM (test code = 4.5 mmol/L 3.5-5.1 N K) CHLORIDE (test code = 103.0 mmol/L 98-107 N CL) CARBON DIOXIDE (test 24.6 mmol/L 21-32 N code = CO2) GLUCOSE (test code = 100 mg/dL 70-110 N GLU) BLOOD UREA NITROGEN 21 mg/dL 7-18 H (test code = BUN) GLOMERULAR FILTRATION 96.6 >60 Unit o f measure: RATE (test code = GFR) mL/mi n/1.73 [id number] Range:Healthy Adults >90 mL/min/1.73 m2 For Chronic Kidney Disease: Stage II Mild Decrease i n GFR 60-90 Stage III Moderate Decrea se in GFR 30-59 St age IV Severe Decre ase in GFR 15-29 S tage V Kidney Failur e <15 CREATININE (test code 0.75 mg/dL 0.55-1.30 N = CREAT) CALCIUM (test code = 8.2 mg/dL 8.2-10.1 N CA) PROTHROMBIN [id number] 10:07:00 Test Item Value Reference Range Interpretation Comments PROTHROMBIN TIME 9.1 secs 10.1-12.5 L PATIENT (test code = PTP) INTERNATIONAL NORMAL 0.80 <2.0 RECOMME NDED THERAPEUTIC RATIO (test code = RANGE FOR ORAL INR) ANTICOAGULANTTR EATMENT: CONDITION INRPr ophylaxis of venous throm bosis in 2.0 - 3.0 high- risk medical or surg ical patientsTreatme nt of venous thrombos is 2.0 - 3.0Prevention o f embolism 2.0 - 3.0Prevention o f recurrent embol ism, or 3.0 - 4.5 patie nts with mechanical pros thetic intravascular v santos IS PATIENT ON ANTICOAGULANTS ? NHas Lab been notified if Patient is on Heparin Drip? NOTHROMBOPLASTIN TIME [id number] 10:07:00 Test Item Value Reference Range Interpretation Comments PTT ACTIVATED (test code = APTT) 26.0 secs 24.9-37.0 N IS PATIENT ON ANTICOAGULANTS ? NHas Lab been notified if Patient is on Heparin Drip? NOCBC W/AUTO [id number] 09:56:00 Test Item Value Reference Range Interpretation Comments WHITE BLOOD CELL (test 13.7 K/mm3 5.8-11.0 H code = WBC) RED BLOOD CELL (test 4.04 M/mm3 4.2-5.4 L code = RBC) HEMOGLOBIN (test code = 13.1 g/dL 12-16 N HGB) HEMATOCRIT (test code = 37.9 % 37-47 N HCT) MEAN CELL VOLUME (test 94 fL 80-98 N code = MCV) MEAN CELL HGB (test code 32.4 pg 27-34 N = MCH) MEAN CELL HGB 34.6 g/dL 30.8-34.1 H CONCENTRATION (test code = MCHC) RED CELL DISTRIBUTION 12.0 % 11-16 N WIDTH (test code = RDW) PLT (test code = PLT) 209 K/mm3 130-400 N MEAN PLATELET VOLUME 10.0 fL 8.9-12.1 N (test code = MPV) NEUTROPHIL % (test code 45.5 % 45-70 N = NT%) LYMPHOCYTE % (test code 34.9 % 20-40 N = LY%) MONOCYTE % (test code = 7.9 % 3-10 N MO%) EOSINOPHIL % (test code 2.8 % 1-5 N = EO%) BASOPHIL % (test code = 0.7 % 0.0-1.1 N BA%) NEUTROPHIL # (test code 6.25 K/mm3 2.00-7.50 N = NT#) LYMPHOCYTE # (test code 4.80 K/mm3 1.50-4.00 H = LY#) MONOCYTE # (test code = 1.08 K/mm3 0.2-0.8 H MO#) EOSINOPHIL # (test code 0.39 K/mm3 0.04-0.4 N = EO#) BASOPHIL # (test code = 0.10 K/mm3 0.02-0.10 N BA#) MANUAL DIFF REQUIRED YES MANUAL DIFF MANUAL DIFF (test code = MDIFF) REQUIRED . NUCLEATED RED BLOOD CELL 0 % 0-0 N (test code = NRBC) Notes Date/Time Note Provider Source 2021-03-24 18:49:00-00:00 [id number] [place] [id number] PATIENT NAME: TIKI BARNARD ADMIT DATE: 03/03 09/19 ACCOUNT NO: [id number] ROOM NO: AGE: 20 REPORT TYPE: OPERATIVE REPORT SEX: F ADMITTING PHYSICIAN: ATTENDING PHYSICIAN:Lesa Núñez MD OPERATION DATE: 03/24/2021 PRIMARY SURGEON: Lesa Núñez MD BARREL ROLLER OPERATOR: DIANA Haley ANESTHESIA: General endotracheal anesthesia. 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 POSTOPERATIVE DIAGNOSES: Right L1-L2 disk hernia tion with severe spinal and lateral stenosis. PROCEDURE: Right L1-L2 laminotomy medial facetec jarek, foraminotomy, and microdiskectomy with use of the operating micros cope. ESTIMATED BLOOD LOSS: 25 mL. BLOOD PRODUCTS: None. COMPLICATIONS: None. IMPLANTS: None. SPECIMENS: None. FINDINGS: A very large acute right L1-L2 disk herniation with central and right paracentral components causing severe spinal and lateral stenosis, thoroughly decompressed without complic ation. Chronic calcified central disk protrusion at L2 as well, partially taken down with downgoing curettes, but unable to fully excise remainder of calcified ligamentum and dis k due to risk of spinal cord injury. BRIEF HISTORY: The patient is a 20-year- old woman who presented with bilateral leg pain and numbness and paresthesias. She had been essentially wheelchair bound of her pain for the last several w eeks to a few months. She was found to have multiple disk herniatio ns throughout her lumbar spine with the largest one being at L1-L2 on the right side, which had migr ated superiorly resulting in severe spinal stenosis and c onus medullaris and the thecal sac compression. She presents for surgery. PATIENT NAME: TIKI BARNARD [id number] DESCRIPTION OF PROCEDURE: The patient was eufemia t to the operating room. General endotracheal was induced. She was placed in a prone position. The lumbosacral spine was preppe d and draped in standard sterile fashion. X-ray was taken to localize the pathology. Incision was pl anned on the midline, infiltrated with 0.25% Carroll ine and Exparel. Then, incision was made with a #10 blade. Dissection proceeded with Bovie cautery to the lumbodorsal fascia, which was opened to the right of midline. A strict sub periosteal dissection was undertaken to expose the right L1-L2 interlamina r space. A self-retaining retractor was placed in the wound and the operative microscope was brought into the field. Another x-ray confirmed the appropria te level. Right L1-L2 laminotomy and facetectomy a nd foraminotomy performed utilizing a matchstick bur and Kerrison punches, taking the decompression a juni the ligament flavum insertion on L1 and below and L2. The lateral andrea rder of thecal sac was identified and as well as the L2 nerve r oot, which was followed out around the L2 pedicle free of any compression. We then diss ected superiorly finding the central disk herniation and right paracentral di sk herniation, which has migrated superiorly. This was dissected off the dura and excised centrally and one extremely large fragment achieving a thoroug h decompression of the thecal sac centrally and laterally. There was additiona l calcified disk material centrally, which appeared to be part of the eleazar yossi and was disconnected from the disk space itself, but stuck to the annulus. It was dissected free off the dura given the large size of this. It was unable to be thoroughly completely excised centrally as this was at the lev el of L1-L2 with a conus and there was no way to retract the dura that far to see the e ntire herniation and it was thought that further dissection and attempts to remove this large calcified central fragment would resul t in spinal cord injury. Another x-ray was taken to confirm that the operation w as performed with the appropriate level and that the probe was placed at the top of the calcified fragment, which was just at the top of the disk space. Most of the preoperat jelena compression was actually above the disk space until it was thou ght thorough decompression had been achieved of the thecal sac eventually. At th is point, the thecal sac appeared patulous, free of any compression. The wound was then irrigated wi th antibiotic irrigation. Hemostasis achieved with Tad Seal, bipolar cautery and then wound was then closed with layers of Vicryl suture. Steri-Strips and s terile dressing on the skin. The patient was then extubated by anesthesia sta ff and taken to recovery in stable condition, moving all 4 extremities well with no complications and all counts were correct at the end of the case x2. Dictated By: Lesa Núñez MD WT: OP:SANDRA/SERGEI/KELLY Conf#: [id number]/DID#: [id number] Authenticated by Lesa Núñez MD On 06/30/2021 0 3:28:45 PM Electronically Signed by Lesa Núñez MD on at 0328 PATIENT NAME: TIKI BARNARD [id number]
[2022-12-15 17:08] LABS: Absolute Lymphocytes (CBC) 2.3 K/uL (0.7-4.9); Hematocrit 40.3 % (36.0-45.0); Lymphocytes % 29.1 % (15.3-44.8); MCV 93.4 fL (80-100); MPV 9.3 fL (7.6-11.3); RBC Red Blood Cell Count 4.32 M/uL (3.86-4.86)
[2022-12-15] MEDS ORDERED: NA CHLORIDE 0.9% 1,000 ML ONE ×2 (17:10→18:04)
[2022-12-15 17:18] LABS: Specific Gravity 1.019 (1.005-1.030)
[2022-12-15 17:30] LABS: Specific Gravity 1.019 (1.005-1.030); Urine Bacteria 20-50 /HPF (<20); Urine Bilirubin NEGATIVE (Negative); Urine Blood Negative (Negative); Urine Clarity Extremely Turbid (Clear); Urine Color Yellow (Yellow); Urine Glucose NEGATIVE (Negative); Urine Mucus 2+ /HPF (None Seen); Urine Protein TRACE (Negative); Urine Urobilinogen Normal (Normal); Urine pH 5.5 (5.0-7.0)
[2022-12-15 18:01] LABS: Potassium 3.7 mEq/L (3.5-5.1)
[2022-12-15] MEDS ORDERED: CEFTRIAXONE 1000 MG/VIAL ONE (18:04)
[2022-12-15] MEDS ORDERED: NA CHLORIDE 0.9% 100 ML ONE (18:04)
--- NOTE | 2022-12-15 18:49 | RAD REPORT ---
EXAM DESCRIPTION: US - Renal Ultrasound-Complete - 12/15/2022 6:27 pm CLINICAL HISTORY: Abdominal pain COMPARISON: None FINDINGS: The right kidney measures 10 cm with a normal echotexture. The left kidney measures 9 cm with a normal echotexture. Hydronephrosis is not seen. No gross abnormality of bladder IMPRESSION: Unremarkable renal ultrasound.
--- NOTE | 2022-12-15 18:50 | RAD REPORT ---
EXAM DESCRIPTION: US - Transvaginal OB - 12/15/2022 6:27 pm CLINICAL HISTORY: with abdominal pain COMPARISON: None. FINDINGS: The uterus measures centimeters. The endometrial stripe measures 10 millimeters. A gesta tional sac is not seen. Right ovary normal in size and echotexture Left ovary mildly enlarged. The right and left adnexa unremarkable No significant free fluid IMPRESSION: Nonvisualization of a gestational sac within the endometrium. These findings could represent an early intrauterine in which the gestational sac is not se en. and even an ectopic can also result in this appearance. This all should be cor related clinically and with serial beta HCG levels. Followup endovaginal sonogram in 1 week recommend ed
[2022-12-15] MEDS ORDERED: AMOX/K CLAV 875 MG TAB ONE (19:09)
--- NOTE | 2022-12-15 19:19 | ER ---
Nurse's Notes [facility] Name: Amber Owusu Age: 22 yrs Sex: Female : 2000 Arrival Date: 12/15/2022 Time: 16:16 Bed 5 Private MD: Diagnosis: UTI/ Urinary tract infection, site not specified;Less than 8 weeks gestation of ;Other ectopic without intrauterine -possible Presentation: 12/15 16:24 Initial Sepsis Screen: Does the patient meet any 2 criteria? No. Patient's initial ml4 sepsis screen is negative. Does the patient have a suspected source of infection? No. Patient's initial sepsis screen is negative. Risk Assessment: Do you want to hurt yourself or someone else? Patient reports no desire to harm self or others. 16:29 Chief complaint: Patient states: Daily vertigo worse w/ standing x 2 wks, resolves w/ ml4 sitting; lower abdominal pain x 2-3 days + dysuria. Coronavirus screen: At this time, the client does not indicate any symptoms associated with coronavirus-19. Ebola Screen: No symptoms or risks identified at this time. Onset of symptoms was December 15, 2022. Care prior to arrival: None. 16:29 Method Of Arrival: Ambulatory ml4 16:29 Acuity: MARIPOSA 2 ml4 16:31 Note Pt reports +UPT today, told approx 4 wk . Never before. Denies ml4 vag bleeding. Endorses "clear liquid" discharge. Triage Assessment: 16:25 General: Appears in no apparent distress. comfortable, Behavior is calm, cooperative, ml4 appropriate for age. Pain: Complains of pain in right lower quadrant and left lower quadrant Pain does not radiate. Pain currently is 8 out of 10 on a pain scale. Is intermittent. EENT: No deficits noted. No signs and/or symptoms were reported regarding the EENT system. Neuro: Reports dizziness, since x 2 wk, daily. Cardiovascular: No deficits noted. Denies chest pain, shortness of breath. Respiratory: No deficits noted. Airway is patent Respiratory effort is even, unlabored, Respiratory pattern is regular, symmetrical. GI: No deficits noted. No signs and/or symptoms were reported involving the gastrointestinal system. : No deficits noted. No signs and/or symptoms were reported regarding the genitourinary system. Derm: No deficits noted. No signs and/or symptoms reported regarding the dermatologic system. Musculoskeletal: No deficits noted. No signs and/or symptoms reported regarding the musculoskeletal system. 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 - Social history:: Smoking status: Reported history of juuling and/or vaping. Patient uses Patient/guardian denies using alcohol, street drugs. - Family history:: not pertinent. Screenin:18 [facility] ED Fall Risk Assessment (Adult) History of falling in the last 3 months, cm10 including since admission No falls in past 3 months (0 pts) Confusion or Disorientation No (0 pts) Intoxicated or Sedated No (0 pts) Impaired Gait No (0 pts) Mobility Assist Device Used No (0 pt) Altered Elimination No (0 pt) Score/Fall Risk Level 0 - 2 = Low Risk. Abuse screen: Denies threats or abuse. Denies injuries from another. Nutritional screening: No deficits noted. Tuberculosis screening: Assessment: 17:12 General: Appears in no apparent distress. distressed, Behavior is calm, cooperative. cm10 Pain: Complains of pain in abdomen and left lower quadrant and right lower quadrant Quality of pain is described as crampy, Is intermittent. Neuro: No deficits noted. Level of Consciousness is awake, alert, obeys commands, Oriented to person, place, time, situation. Neuro: Reports dizziness. Cardiovascular: No deficits noted. Respiratory: No deficits noted. Airway is patent Respiratory effort is even, unlabored. :. : Reports discharge, from vagina that is. 19:18 General: Appears comfortable, Behavior is calm, cooperative. Pain: Complains of pain in ha1 suprapubic area Pain currently is 3 out of 10 on a pain scale. Quality of pain is described as crampy. Neuro: Level of Consciousness is awake, alert, obeys commands, Oriented to person, place, time, situation. Cardiovascular: Patient's skin is warm and dry. Respiratory: Airway is patent Respiratory effort is even, unlabored, Respiratory pattern is regular, symmetrical. GI: Abdomen is flat, non-distended. Derm: Skin is pink, warm \\T\\ dry. Musculoskeletal: Circulation, motion, and sensation intact. Range of motion: intact in all extremities. Vital Signs: 16:29 BP 123 / 81; Pulse 91; Resp 18; Temp 99.5; Pulse Ox 100% on R/A; Weight 63.5 kg; Height ml4 5 ft. 8 in. ; Pain 5/10; 19:20 BP 121 / 88; Pulse 68; Resp 15 S; Pulse Ox 100% on R/A; ha1 16:29 Body Mass Index 21.29 (63.50 kg, 172.72 cm) ml4 16:29 Pain Scale: Adult ml4 Royce Coma Score: 17:17 Eye Response: spontaneous(4). Motor Response: obeys commands(6). Verbal Response: cm10 oriented(5). Total: 15. ED Course: 16:21 Patient arrived in ED. im 16:23 Arm band placed on right wrist. ml4 16:31 Triage completed. ml4 16:35 Elizabeth Watson, CAROL is Primary Nurse. cm10 16:56 Yoni Burns MD is Attending Physician. lynda 16:58 Abo/rh Typing Sent. cm10 16:58 Basic Metabolic Panel Sent. cm10 16:58 CBC with Diff Sent. cm10 16:58 Test, Urine Sent. cm10 16:58 Quantitative Hcg Sent. cm10 16:58 Urinalysis w/ reflexes Sent. cm10 16:59 Initial lab(s) drawn, by or, sent to lab. Urine collected: clean catch specimen. cm10 Inserted saline lock: 20 gauge in left antecubital area, using aseptic technique. Blood collected. 17:00 Pt visited by significant other. cm10 17:00 Patient has correct armband on for positive identification. Bed in low position. Side cm10 rails up X2. Pulse ox on. NIBP on. Warm blanket given. Diet: Patient is NPO. 17:39 ED physician to see patient. cm10 18:06 Patient taken to ultrasound. via wheelchair. cm10 18:29 US Rp Exam Complete In Process Unspecified. EDMS 18:29 US Transvaginal Ob In Process Unspecified. EDMS 18:31 Patient moved back from ultrasound. cm10 19:28 No provider procedures requiring assistance completed. IV discontinued, intact, ha1 bleeding controlled, No redness/swelling at site. Pressure dressing applied. Administered Medications: 17:11 Drug: NS 0.9% IV 1000 ml Route: IV; Rate: 1 bolus; Site: left antecubital; cm10 18:06 Follow up: Response: No adverse reaction; IV Status: Completed infusion; IV Intake: cm10 1000ml 18:05 Drug: Rocephin IV 1 grams Route: IV; Rate: per protocol; Site: left antecubital; cm10 18:30 Drug: NS 0.9% IV 1000 ml Route: IV; Rate: 1 bolus; Site: left antecubital; kc6 19:03 Drug: Amoxicillin-Clavulanate PO 875 mg Route: PO; ll1 Medication: 17:19 VIS not applicable for this client. cm10 Intake: 18:06 IV: 1000ml; Total: 1000ml. cm10 Outcome: 19:18 Discharge ordered by . [facility] 19:29 Discharged to home ambulatory, with family. ha1 19:29 Condition: stable 19:29 Discharge instructions given to patient, family, Instructed on discharge instructions, follow up and referral plans. medication usage, Demonstrated understanding of instructions, follow-up care, medications. 19:29 Patient left the ED. ha1 Signatures: Dispatcher [employer] Yoni Saavedra MD MD cha Lewis, Lynsay RN RN ll1 Sarika Frazier RN RN ha1 Ijeoma Mckinney RN RN kc6 Sheela Rubin Clarissa RN RN cm10 CAROL HerbertIII, Stephen, RN RN ml4
--- NOTE | 2022-12-15 19:19 | EDPHYS ---
Physician Documentation [facility] Name: Amber Owusu Age: 22 yrs Sex: Female : 2000 Arrival Date: 12/15/2022 Time: 16:16 Bed 5 Private MD: ROMEL Physician Yoni Burns HPI: 12/15 17:43 This 22 yrs old Female presents to ER via Ambulatory with complaints of lynda , dizziness. 17:43 The patient presents with abdominal pain in the lower abdomen. Onset: The lynda symptoms/episode began/occurred 3 day(s) ago. The patient presents with urinary symptoms, frequency. Onset: The symptoms/episode began/occurred 3 day(s) ago. Modifying factors: The symptoms are alleviated by nothing, the symptoms are aggravated by nothing. Associated signs and symptoms: Pertinent positives: cramping, . Severity of symptoms: At their worst the symptoms were mild, moderate, in the emergency department the symptoms are unchanged. The estimated gestational age is 4 weeks. course: care: none. The patient is sexually active, reportedly has a single partner. 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 - Social history:: Smoking status: Reported history of juuling and/or vaping. Patient uses Patient/guardian denies using alcohol, street drugs. - Family history:: not pertinent. ROS: 17:43 Constitutional: Negative for fever, chills, and weight loss, Eyes: Negative for injury, lynda pain, redness, and discharge, ENT: Negative for injury, pain, and discharge, Neck: Negative for injury, pain, and swelling, Cardiovascular: Negative for chest pain, palpitations, and edema, Respiratory: Negative for shortness of breath, cough, wheezing, and pleuritic chest pain, Back: Negative for injury and pain, MS/Extremity: Negative for injury and deformity, Skin: Negative for injury, rash, and discoloration, Neuro: Negative for headache, weakness, numbness, tingling, and seizure, Psych: Negative for depression, anxiety, suicide ideation, homicidal ideation, and hallucinations, Allergy/Immunology: Negative for hives, rash, and allergies, Endocrine: Negative for neck swelling, polydipsia, polyuria, polyphagia, and marked weight changes, Hematologic/Lymphatic: Negative for swollen nodes, abnormal bleeding, and unusual bruising. 17:43 Abdomen/GI: Positive for abdominal pain, abdominal cramps. 17:43 Back: Positive for pain at rest, pain with movement, of the lumbar area. Exam: 17:43 Constitutional: This is a well developed, well nourished patient who is awake, alert, lynda and in no acute distress. Head/Face: Normocephalic, atraumatic. Eyes: Pupils equal round and reactive to light, extra-ocular motions intact. Lids and lashes normal. Conjunctiva and sclera are non-icteric and not injected. Cornea within normal limits. Periorbital areas with no swelling, redness, or edema. ENT: Nares patent. No nasal discharge, no septal abnormalities noted. Tympanic membranes are normal and external auditory canals are clear. Oropharynx with no redness, swelling, or masses, exudates, or evidence of obstruction, uvula midline. Mucous membranes moist. Neck: Trachea midline, no thyromegaly or masses palpated, and no cervical lymphadenopathy. Supple, full range of motion without nuchal rigidity, or vertebral point tenderness. No Meningismus. Chest/axilla: Normal chest wall appearance and motion. Nontender with no deformity. No lesions are appreciated. Cardiovascular: Regular rate and rhythm with a normal S1 and S2. No gallops, murmurs, or rubs. Normal PMI, no JVD. No pulse deficits. Respiratory: Lungs have equal breath sounds bilaterally, clear to auscultation and percussion. No rales, rhonchi or wheezes noted. No increased work of breathing, no retractions or nasal flaring. Back: No spinal tenderness. No costovertebral tenderness. Full range of motion. Female : Normal external genitalia. Skin: Warm, dry with normal turgor. Normal color with no rashes, no lesions, and no evidence of cellulitis. MS/ Extremity: Pulses equal, no cyanosis. Neurovascular intact. Full, normal range of motion. Neuro: Awake and alert, GCS 15, oriented to person, place, time, and situation. Cranial nerves II-XII grossly intact. Motor strength 5/5 in all extremities. Sensory grossly intact. Cerebellar exam normal. Normal gait. Psych: Awake, alert, with orientation to person, place and time. Behavior, mood, and affect are within normal limits. 17:43 Abdomen/GI: Inspection: abdomen appears normal, Bowel sounds: normal, Palpation: mild abdominal tenderness, in the suprapubic area, right lower quadrant and left lower quadrant. Vital Signs: 16:29 BP 123 / 81; Pulse 91; Resp 18; Temp 99.5; Pulse Ox 100% on R/A; Weight 63.5 kg; Height ml4 5 ft. 8 in. ; Pain 5/10; 19:20 BP 121 / 88; Pulse 68; Resp 15 S; Pulse Ox 100% on R/A; ha1 16:29 Body Mass Index 21.29 (63.50 kg, 172.72 cm) ml4 16:29 Pain Scale: Adult ml4 Royce Coma Score: 17:17 Eye Response: spontaneous(4). Motor Response: obeys commands(6). Verbal Response: cm10 oriented(5). Total: 15. MDM: 16:56 Patient medically screened. lynda 17:46 Differential diagnosis: kidney stone, STD, urinary tract infection, Ectopic , lynda non-specific abd pain. Data reviewed: vital signs, nurses notes, lab test result(s), radiologic studies, ultrasound. Consideration of Admission/Observation Escalation of care including admission/observation considered. I considered the following discharge prescriptions or medication management in the emergency department Medications were administered in the Emergency Department. See MAR. Test considered but Not performed: MRI: no mri abd/pelvis. 12/15 16:38 Order name: Abo/rh Typing; Complete Time: 18:09 snw 12/15 16:38 Order name: Basic Metabolic Panel; Complete Time: 18:09 snw 12/15 16:38 Order name: CBC with Diff; Complete Time: 17:37 snw 12/15 16:38 Order name: Test, Urine; Complete Time: 17:37 snw 12/15 16:38 Order name: Quantitative Hcg; Complete Time: 18:09 snw 12/15 16:38 Order name: Urinalysis w/ reflexes; Complete Time: 17:37 snw 12/15 17:38 Order name: Urine Culture [facility] 12/15 17:42 Order name: US Rp Exam Complete [facility] 12/15 17:42 Order name: US Transvaginal Ob [facility] 12/15 16:38 Order name: IV Saline Lock; Complete Time: 16:58 snw 12/15 16:38 Order name: Labs collected and sent; Complete Time: 16:58 snw 12/15 16:38 Order name: NPO; Complete Time: 16:58 snw Administered Medications: 17:11 Drug: NS 0.9% IV 1000 ml Route: IV; Rate: 1 bolus; Site: left antecubital; cm10 18:06 Follow up: Response: No adverse reaction; IV Status: Completed infusion; IV Intake: cm10 1000ml 18:05 Drug: Rocephin IV 1 grams Route: IV; Rate: per protocol; Site: left antecubital; cm10 18:30 Drug: NS 0.9% IV 1000 ml Route: IV; Rate: 1 bolus; Site: left antecubital; kc6 19:03 Drug: Amoxicillin-Clavulanate PO 875 mg Route: PO; ll1 Disposition Summary: 12/15/22 19:18 Discharge Ordered Location: Home lynda Problem: new lynda Symptoms: have improved lynda Condition: Stable lynda Diagnosis - UTI/ Urinary tract infection, site not specified lynda - Less than 8 weeks gestation of lynda - Other ectopic without intrauterine - possible lynda Followup: lynda - With: Private Physician - When: 2 - 3 days - Reason: Recheck today's complaints, Continuance of care, Re-evaluation by your physician Discharge Instructions: - Discharge Summary Sheet lynda - Dysuria lynda - Ectopic lynda - Care lynda - Urinary Tract Infection, Adult lynda - First Trimester of , [id number] lynda - Urinary Tract Infection, Adult, [id number] lynda - Ectopic , [id number] lynda - Eating Plan for Women lynda Forms: - Medication Reconciliation Form lynda - Thank You Letter lynda - Antibiotic Education lynda - Prescription Opioid Use lynda Prescriptions: - Augmentin 875-125 mg Oral Tablet - take 1 tablet by ORAL route every 12 hours for 7 days; 14 tablet; Refills: 0, lynda Product Selection Permitted Signatures: Dispatcher [employer] Yoni Saavedra MD MD cha Waters, Shelly, CARD CUTTER HELPER-C CARD CUTTER HELPER-Csnw Mary Umanzor, RN RN ll1 Ijeoma Mckinney, RN RN kc6 Elizabeth Watson, RN RN cm10 Piedad, CAROLIII, Stephen RN RN ml4
[2022-12-15 20:47] VITALS: TEMP 99.5; O2SAT 100
[2022-12-15 20:49] VITALS: BP 121/88
== END 2022-12-15 19:29 | disposition home or self-care (01) ==
LOC: ER 16:16
DX: O23.41 Unspecified infection of urinary tract in pregnancy, first trimester (principal); N39.0 Urinary tract infection, site not specified; O99.341 Other mental disorders complicating pregnancy, first trimester; F31.9 Bipolar disorder, unspecified; Z3A.01 Less than 8 weeks gestation of pregnancy
CPT/HCPCS: 96361; 87088; 85025; 81001; 87086; 80048; 36415; 86900; 81025; 86901; 84702; 76770; 76817; 96374; 99285; J7030 ×2; J0696

== ENCOUNTER 2023-10-10 12:09 | Emergency (ER) | payer SELFPAY ==
--- OUTSIDE RECORDS SUMMARY | 2023-10-10 12:12 | XMS REPORT | Continuity of Care Document ---
Author Name Unknown Address [address] [facility] [address] [place] [address] [facility] Address [address] [facility] [address] [place] [address] Care Team Providers Care Syrup Mixer Assistant Name Role Phone CARLITO DIEGO Primary Care Physician Unavaila ble PVH_GC_VIRTUAL_PROV Attending Clinician Unavaila ble GC_GCBZW_Kadiyala_S Attending Clinician Unavaila ROSIE Coe S Attending Clinician Unavailable Rosie Cornell Attending Clinician Lesa Núñez Attending Clinician Unavailable PV_GC_VIRTUAL_PROV Admitting Clinician Unavaila ble GC_GCBZW_Kadiyala_S Admitting Clinician Unavaila ROSIE Coe Admitting Clinician Unavailable Lesa Núñez Admitting Clinician Unavailable Payers Payer Name Policy Type Policy Number Effective Date Expirati on Date Source GENERIC COMMERCIAL - MOVED HOLD [id number] [facility] [id number] 2021 00:00:00 Allergies, Adverse Reactions, Alerts Allergy Name Allergy Type Status Severity Reaction(s) Onset Date Inactive Date Treating Clinician Comments Source No Known Allergie s DA Active U 03-18 00:00: 00 [facility] No Known Allergie s DA Active U 03-18 00:00: [facility] NO KNOWN ALLERGIE S Drug Class Active [facility] Social History Social Habit Start Date Stop Date Quantity Comments Source Sex Assigned At 2000 00:00:00 2000 00:00:00 [facility] Smoking Status Start Date Stop Date Source Tobacco smoking consumption unknown [facility] Medications Ordered Medication Name Filled Medication Name Start Date Stop Date Current Medication? Ordering Clinician Indication Dosage Frequency Signature (SIG) Comments Components Source NaCl 0.9% (NS) bolus infusion 1,000 mL 12-26 22:15: 00 12-27 00:03 :00 No 1000mL at 999 mL/hr, 1,000 mL, IV Infusion, ONCE, 1 dose, On Sun12/26/22 at 1715, STAT [facility] ondansetron (ZOFRAN (PF)) injection 4 mg 12-26 21:15: 00 12-26 21:33 :00 No 4mg 4 mg, Slow IV Push, ONCE, 1 dose, On Sun12/26/22 at 1615, [facility] HYDROcodone -acetaminop hen (NORCO 5) 5-325 mg tablet 1 tablet 12-26 21:15: 00 12-26 21:33 :00 No 1{tbl} 1 tablet, Oral, ONCE, 1 dose, On Sun12/26/22 at 1615, [facility] proMETHazin e 25 mg tablet 12-26 00:00: 00 Yes [id number] 25mg Take 1 tablet by mouth every 6 (six) hours as needed for Nausea and Vomiting (N/V). [facility] Vital Signs Vital Name Observation Time Observation Value Comments S kelsey Systolic blood pressure 2022-12-26 20:22:00 122 mm[Hg] [facility] Diastolic blood pressure 2022-12-26 20:22:00 96 mm[Hg] [facility] Heart rate 2022-12-26 20:22:00 89 /min [facility] Body temperature 2022-12-26 20:22:00 38 Sherrie [facility] Respiratory rate 2022-12-26 20:22:00 16 /min [facility] Body height 2022-12-26 20:22:00 165.1 cm [facility] Body weight 2022-12-26 20:22:00 63.5 kg [facility] BMI 2022-12-26 20:22:00 23.30 kg/m2 [facility] Oxygen saturation in Arterial blood by Pulse oximetry 2022-12-26 20:22:00 100 /min [place] [facility] Procedures Procedure Date / Time Performed Performing Clinician Source ABORH CONFIRMATION (LAB ONLY) 2022-12-26 22:34:00 Rosie Brock [facility] US FIRST TRIMESTER LESS THAN 14 WEEKS WITH TRANSVAGINAL 2022-12-26 22:30:29 Rosie Brock [facility] POCT TEST 2022-12-26 21:10:00 Rosie Brock [facility] CBC WITH DIFF 2022-12-26 21:03:00 Rosie Brock [facility] URINALYSIS 2022-12-26 21:03:00 [facility] 2022-12-26 21:03:00 Rosie Brock [facility] COMP. METABOLIC PANEL (32903) 2022-12-26 21:03:00 Rosie Brock [facility] TOTAL BETA HCG ASSAY 2022-12-26 21:03:00 Rosie Brock [facility] CONSENT/REFUSAL FOR DIAGNOSIS AND TREATMENT 2022-12-26 20:01:52 Doctor Unassigned, [place] [facility] NOTICE OF PRIVACY PRACTICES 2022-12-26 20:01:14 Doctor Unassigned, [place] [facility] Encounters Start Date/Time End Date/Time Encounter Type Admission Type Attending Clinicians Care Facility Care Department Encounter ID Source 2023-06-22 00:00:00 2023-06-22 00:00:00 Outpatient PVH_GC_VIRT UAL_PROV [facility] [id number] [facility] 2023-04-28 00:00:00 2023-04-28 00:00:00 Outpatient GC_GCBZW_Ka charlie_S [facility] [id number] [facility] 2022-12-26 15:23:00 2022-12-26 19:55:00 Emergency X [facility] ERT [id number] [facility] 2022-12-26 15:23:00 2022-12-26 19:55:00 Emergency Rosie Brock [facility] [id number] [facility] 2021-03-18 08:45:00 2021-03-24 11:23:00 Inpatient EL Lesa Núñez HCATO SURG [id number] 2021-03-18 15:34:00 2021-03-18 15:34:00 Outpatient Lesa Núñez HCACL LABO [id number] Results Test Description Test Time Test Comments Results Result Co mments Source [facility] MET[facility]OLIC PANEL (49295)2022-12-26 21:51:59* Test Item Value Reference Range Interpretation Comme nts NA (test code = 3409585167) 139 mmol/L 135-145 K (test code = 4966871007) 3.6 mmol/L 3.5-5.0 CL (test code = 6027123527) 104 mmol/L 98-108 CO2 TOTAL (test code = 3797293218) 22 mmol/L 23-31 L AGAP (test code = 8391437638) 13 2-16 BUN (test code = 7424685549) 7 mg/dL 7-23 GLUCOSE (test code = 4065094300) 93 mg/dL 70-110 CREATININE (test code = 9910478186) 0.46 mg/dL 0.50-1.04 L TOTAL BILI (test code = 7040191926) 0.9 mg/dL 0.1-1.1 CALCIUM (test code = 0253453775) 9.4 mg/dL 8.6-10.6 T PROTEIN (test code = 1349700045) 7.3 g/dL 6.3-8.2 ALBUMIN (test code = 3088686432) 4.7 g/dL 3.5-5.0 ALK PHOS (test code = 6280644334) 37 U/L 34-122 ALTv (test code = 1742-6) 16 U/L 5-35 AST(SGOT) (test code = 5166956113) 19 U/L 13-40 eGFR (test code = 2674416213) 166.9 mL/min/1.73m2 АННА (test code = АННА) Association of Glomerular Filtration Rate (GFR) and Staging of Kidney Disease* + --+ --+ ------+| GFR (mL/min/1.73 m2) ?| With Kidney Damage ?| ?Without Kidney Damage+ --------+ --------+ +| ?>90 ?| ?Stage one ?| ? Normal ?+ ---+ ---+ -------+| ?60-89 ?| ?Stage two ?| ? Decreased GFR ? + --+ --+ ------+| ?30-59 ?| ?Stage three ?| ? Stage three ? + --+ --+ ------+| ?15-29 ?| ?Stage four ? | ? Stage four ?+ ---+ ---+ -------+| ?<15 (or dialysis) ? ?| ?Stage five ? | ? Stage five ?+ ---+ ---+ -------+ *Each stage assumes the associated GFR level has been in effect for at least three months. ?Stages 1 to 5, with or without kidney disease, indicate chronic kidney disease. Notes: Determination of stages one and two (with eGFR >59mL/min/1.73 m2) requires estimation of kidney damage for at least three months as defined by structural or functional abnormalities of the kidney, manifested by either:Pathological abnormalities or Markers of kidney damage (including abnormalities in the composition of the blood or urine or abnormalities in imaging tests). Lab Interpretation (test code = 85003-8) Abnormal [facility] WITH [id number] 21:39:57* Test Item Value Reference Range Interpretation Comme nts WBC (test code = 6690-2) 11.05 See_Comment [Automated messa ge] The system which generated this result transmitted reference range: 4.30 - 11.10 10*3/?L. The reference range was not used to interpret this result as normal/abnormal. RBC (test code = 789-8) 4.09 See_Comment [Automated News in Shortsa ge] The system which generated this result transmitted reference range: 3.93 - 5.25 10*6/?L. The reference range was not used to interpret this result as normal/abnormal. HGB (test code = 718-7) 12.9 g/dL 11.6-15.0 HCT (test code = 4544-3) 36.7 % 35.7-45.2 MCV (test code = 787-2) 89.7 fL 80.6-95.5 MCH (test code = 785-6) 31.5 pg 25.9-32.8 MCHC (test code = 786-4) 35.1 g/dL 31.6-35.1 RDW-SD (test code = 22805-7) 38.9 fL 39.0-49.9 L RDW-CV (test code = 788-0) 12.0 % 12.0-15.5 PLT (test code = 777-3) 260 See_Comment [Automated News in Shortsa ge] The system which generated this result transmitted reference range: 166 - 358 10*3/?L. The reference range was not used to interpret this result as normal/abnormal. MPV (test code = 23138-2) 10.7 fL 9.5-12.9 NRBC/100 WBC (test code = 8563943276) 0.0 See_Comment [Automated Favbuy ssage] The system which generated this result transmitted reference range: 0.0 - 10.0 /100 WBCs. The reference range was not used to interpret this result as normal/abnormal. NRBC x10^3 (test code = 2646100255) See_Comment [Automated News in Shortsa ge] The system which generated this result transmitted reference range: 10*3/?L. The reference range was not used to interpret this result as normal/abnormal. GRAN MAT (NEUT) % (test code = 770-8) 63.8 % IMM GRAN % (test code = 5536371942) 0.30 % LYMPH % (test code = 736-9) 28.7 % MONO % (test code = 5905-5) 6.2 % EOS % (test code = 713-8) 0.5 % BASO % (test code = 706-2) 0.5 % GRAN MAT x10^3(ANC) (test code = 2029988834) 7.06 10*3/uL 1.88-7.09 IMM GRAN x10^3 (test code = 2355779787) 0.03 10*3/uL 0.00-0.06 LYMPH x10^3 (test code = 731-0) 3.17 10*3/uL 1.32-3.29 MONO x10^3 (test code = 742-7) 0.69 10*3/uL 0.33-0.92 EOS x10^3 (test code = 711-2) 0.05 10*3/uL 0.03-0.39 BASO x10^3 (test code = 704-7) 0.05 10*3/uL 0.01-0.07 Lab Interpretation (test code = 78917-8) [facility]normal [facility] - ONCE [id number] 21:34:00 * Test Item Value Reference Range Interpretation Comme nts ABO & RH (test code = 20) O Positive IAT (test code = 1185) Negative [facility] [id number] 21:10:00* Test Item Value Reference Range Interpretation Comme nts POCT PREG (test code = 1605) Positive On board controls acceptable with C Line (test code = 3574) Yes POCT PREG LOT # (test code = 357 996610 POCT PREG TEST DATE ( test code = 3576) 06/13/2024 Lab Interpretation (test cod e = 83993-3) Normal [facility]- XR SPINE 1 V SPEC [id number] 07:42:00 [facility] AIKEN : 2000 Sex: F Patient Name: TIKI BARNARD Unit No: [id number] EXAMS: CPT CODE: [id number] XR SPINE 1 V SPEC [id number] INTRAOPERATIVE LATERAL LUMBAR SPINE Film 1. A marker is posterior to L2. Film 2. A surgical instrument is posterior to L1-2. Film 3. Surgical instruments are posterior to L1-2 and L2 at 0742 Reported and signed by: Octavio Morrow MD CC: Lesa Núñez MD Technologist: TRACE SINGLETON (RT.R) Transcribed D/ (0742) Jose AntonioL [facility] NAME: TIKI BARNARD[address] PHYS: Lesa Sr MD : 2000 AGE: 20 SEX: F [place] [address] LOC: YBhavinMARZENA PHONE #: [phone] EXAM DATE: 03/24/2021 STATUS: [facility] FAX #: [phone] RAD #: D/C DT PAGE 1 Signed Report Patient Name: TIKI BARNARD Unit No: [id number] EXAMS: CPT CODE: [id number] XR SPINE 1 V SPEC LEVEL 30395 (Continued) Orig Print D/T: S: 03/25/2021 (0745) [facility] NAME: TIKI BARNARD [address] [place] [address] PHYS: Lesa Sr MD : 2000 AGE: 20 SEX: F [place] [address] LOC: Y.MARZENA PHONE #: [phone] EXAM DATE: 03/24/2021 STATUS: [facility] FAX #: [phone] RAD #: D/C DT PAGE 2 Signed Report- XR SPINE 1 V SPEC [id number] 07:42:00 [facility] : 2000 Sex: F Patient Name: TIKI BARNARD Unit No: [id number] EXAMS: CPT CODE: [id number] XR SPINE 1 V SPEC LEVEL 00090 INTRAOPERATIVE LATERAL LUMBAR SPINE Film 1. A marker is posterior to L2. Film 2. A surgicalinstrument is posterior to L1-2. Film 3. Surgical instruments are posterior to L1-2 and L2 at 0742 Reported and signed by: Octavio Morrow MD CC: Lesa Núñez MD Technologist: TRACE SINGLETON (RT.R) Transcribed D/ (0742) [place] [facility] NAME: TIKI BARNARD [address] [place] [address] PHYS: Lesa Sr MD : 2000 AGE: 20 SEX: F [place], [place] [address] LOC: DavidMARZENA PHONE #: [phone] EXAM DATE: 03/24/2021 STATUS: [facility] FAX #: [phone] RAD #: D/C DT PAGE 1 Signed Report Patient Name: TIKI BARNARD Unit No: [id number] EXAMS: CPT CODE: [id number] XRSPINE 1 V SPEC LEVEL 82004 (Continued) Orig Print D/T: S: 03/25/2021 (0745) [facility] NAME: TIKI BARNARD [address] [place] [address] PHYS: KRISTINA - Lesa Núñez MD : 2000 AGE: 20 SEX: F [place], [place] [address] LOC: DavidMARZENA PHONE #: [phone] EXAM DATE: 03/24/2021 STATUS: [facility] FAX #: [phone] RAD #: D/C DT PAGE 2 Signed Report- XR SPINE 1 V SPEC [id number] 07:42:00 [facility] : 2000 Sex: F Patient Name: TIKI BARNARD Unit No: [id number] EXAMS: CPT CODE: [id number] XR SPINE 1 V SPEC LEVEL 54423 INTRAOPERATIVE LATERAL LUMBAR SPINE Film 1. A marker is posterior to L2. Film 2. A surgical instrument is posterior to L1-2. Film 3. Surgical instruments are posterior to L1-2 and L2 at 0742 Reported and signed by: Octavio Morrow MD CC: Lesa Núñez MD Technologist: TRACE SINGLETON (RT.R) Transcribed D/ (0742) t.RODNEYR.L [facility] NAME: TIKI BARNARD [address] [facility] [address] PHYS: SERGEI - Lesa Núñez MD : 2000 AGE: 20 SEX: F [place], [place] [address] LOC: DavidMARZENA PHONE #: [phone] EXAM DATE: 03/24/2021 STATUS: [facility] FAX #: [phone] RAD #: D/C DT PAGE1 Signed Report Patient Name: TIKI BARNARD Unit No: [id number] EXAMS: CPT CODE: [id number] XR SPINE 1 V SPEC LEVEL 08666 (Continued) Orig Print D/T: S: 03/25/2021 (0745) [facility] NAME: TIKI BARNARD [address] [facility] PHYS: Lesa Sr MD : 2000 AGE: 20 SEX: F [place], [place] [address] LOC: STEVO PHONE #: [phone] EXAM DATE: 03/24/2021 STATUS: [facility] FAX #: [phone] RAD #: D/C DT PAGE 2 Signed ReportNovel Coronavirus 2018 [id number] 22:44:00* Test Item Value Reference Range Interpretation Comme nts Novel Coronavirus 2018 Inhouse (test code = COVNONPUI) Negative Negative Positive resul ts are indicative of the presence wbCCBD-JbP-3 RNA, clinical correlation with patient historyand other diagnostic information is necessary to determinepatient infection status. Positive results do not rule outbacterial infection or co-infection with other viruses. Negative results do not preclude SARS-CoV-2 infection andshould not be used as the sole basis for patient managementdecisions. Negative results must be combined with otherclinical observations, patient history, and epidemiologicalinformation . Detection of SARS-CoV-2 RNA may be affected bysample collection methods, storage conditions, and/or stageof infection. Viral RNA mutations, vaccinations, antiviraltherapeutics, antibiotics, chemotherapeutic orimmunosuppressant drugs have not been evaluated for effectson detection. Results are for the identification of SARS-CoV-2 RNA usingthe [employer] M2000 System under the FDA Emergency UseAuthorization. The testing is performed by personneltrained in the procedures for the [employer] M2000 moleculardiagnostic SARS-CoV-2 assay in vitro. Novel Coronavirus 2018 [id number] 22:43:00* Test Item Value Reference Range Interpretation Comme nts Novel Coronavirus 2018 Inhouse (test code = COVNONPUI) Negative Negative Positive resul ts are indicative of the presence qeAXHH-HcT-0 RNA, clinical correlation with patient historyand other diagnostic information is necessary to determinepatient infection status. Positive results do not rule outbacterial infection or co-infection with other viruses. Negative results do not preclude SARS-CoV-2 infection andshould not be used as the sole basis for patient managementdecisions. Negative results must be combined with otherclinical observations, patient history, and epidemiologicalinformation . Detection of SARS-CoV-2 RNA may be affected bysample collection methods, storage conditions, and/or stageof infection. Viral RNA mutations, vaccinations, antiviraltherapeutics, antibiotics, chemotherapeutic orimmunosuppressant drugs have not been evaluated for effectson detection. Results are for the identification of SARS-CoV-2 RNA usingthe [employer] M2000 System under the FDA Emergency UseAuthorization. The testing is performed by personneltrained in the procedures for the [employer] M2000 moleculardiagnostic SARS-CoV-2 assay in vitro. CBC W/MANUAL [id number] 10:12:00* Test Item Value Reference Range Interpretation Comme nts WHITE BLOOD CELL (test code = WBC) 13.7 K/mm3 5.8-11.0 H RED BLOOD CELL (test code = RBC) 4.04 M/mm3 4.2-5.4 L HEMOGLOBIN (test code = HGB) 13.1 g/dL 12-16 N HEMATOCRIT (test code = HCT) 37.9 % 37-47 N MEAN CELL VOLUME (test code = MCV) 94 fL 80-98 N MEAN CELL HGB (test code = MCH) 32.4 pg 27-34 N MEAN CELL HGB CONCENTRATION (test code = MCHC) 34.6 g/dL 30.8-34.1 H RED CELL DISTRIBUTION WIDTH (test code = RDW) 12.0 % 11-16 N PLT (test code = PLT) 209 K/mm3 130-400 N MEAN PLATELET VOLUME (test code = MPV) 10.0 fL 8.9-12.1 N STAIN ACCEPTABILITY (test code = STN ACCEPTABLE) STAIN ACCEPTABLE CELLS COUNTED (test code = TCC) 100 See_Comment [Automated message] The system which generated this result transmitted reference range: 100. The reference range was not used to interpret this result as normal/abnormal. SEGMENTED NEUTROPHILS (test code = SEG) 36 % 50-65 L LYMPHOCYTE (test code = LYMPH) 49 % 20-40 H NUCLEATED RED BLOOD CELL (test code = NRBC) 0 % 0-0 N BAND NEUTROPHIL (test code = BAND) 7 % 0-10 N MONOCYTE (test code = MON) 2 % 2-9 N EOSINOPHIL (test code = EOS) 3 % 1-3 N METAMYELOCYTE (test code = META) 2 % 0-0 H MYELOCYTE (test code = MYELO) 1 % 0-0 H BASIC METABOLIC [id number] 10:08:00* Test Item Value Reference Range Interpretation Comme nts SODIUM (test code = NA) 137 mmol/L 136-145 N POTASSIUM (test code = K) 4.5 mmol/L 3.5-5.1 N CHLORIDE (test code = CL) 103.0 mmol/L 98-107 N CARBON DIOXIDE (test code = CO2) 24.6 mmol/L 21-32 N GLUCOSE (test code = GLU) 100 mg/dL 70-110 N BLOOD UREA NITROGEN (test code = BUN) 21 mg/dL 7-18 H GLOMERULAR FILTRATION RATE (test code = GFR) 96.6 >60 Unit of m easure: mL/min/1.73 [id number] Range:Healthy Adults >90 mL/min/1.73 m2 For Chronic Kidney Disease: Stage II Mild Decrease in GFR 60-90 Stage III Moderate Decrease in GFR 30-59 Stage IV Severe Decrease in GFR 15-29 Stage V Kidney Failure <15 CREATININE (test code = CREAT) 0.75 mg/dL 0.55-1.30 N CALCIUM (test code = CA) 8.2 mg/dL 8.2-10.1 N PROTHROMBIN [id number] 10:07:00* Test Item Value Reference Range Interpretation Comme nts PROTHROMBIN TIME PATIENT (test code = PTP) 9.1 secs 10.1-12.5 L INTERNATIONAL NORMAL RATIO (test code = INR) 0.80 <2.0 RECOMMENDED THER APEUTIC RANGE FOR ORAL ANTICOAGULANTTREATMENT: CONDITION INRProphylaxis of venous thrombosis in 2.0 - 3.0 high-risk medical or surgical patientsTreatment of venous thrombosis 2.0 - 3.0Prevention of embolism 2.0 - 3.0Prevention of recurrent embolism, or 3.0 - 4.5 patients with mechanical prosthetic intravascular valves IS PATIENT ON ANTICOAGULANTS ? NHas Lab been notified if Patient is on Heparin Drip? NOTHROMBOPLASTIN TIME [id number] 10:07:00* Test Item Value Reference Range Interpretation Comme nts PTT ACTIVATED (test code = APTT) 26.0 secs 24.9-37.0 N IS PATIENT ON ANTICOAGULANTS ? FLas Lab been notified if Patient is on Heparin Drip? NOCBC W/AUTO [id number] 09:56:00* Test Item Value Reference Range Interpretation Comme nts WHITE BLOOD CELL (test code = WBC) 13.7 K/mm3 5.8-11.0 H RED BLOOD CELL (test code = RBC) 4.04 M/mm3 4.2-5.4 L HEMOGLOBIN (test code = HGB) 13.1 g/dL 12-16 N HEMATOCRIT (test code = HCT) 37.9 % 37-47 N MEAN CELL VOLUME (test code = MCV) 94 fL 80-98 N MEAN CELL HGB (test code = MCH) 32.4 pg 27-34 N MEAN CELL HGB CONCENTRATION (test code = MCHC) 34.6 g/dL 30.8-34.1 H RED CELL DISTRIBUTION WIDTH (test code = RDW) 12.0 % 11-16 N PLT (test code = PLT) 209 K/mm3 130-400 N MEAN PLATELET VOLUME (test code = MPV) 10.0 fL 8.9-12.1 N NEUTROPHIL % (test code = NT%) 45.5 % 45-70 N LYMPHOCYTE % (test code = LY%) 34.9 % 20-40 N MONOCYTE % (test code = MO%) 7.9 % 3-10 N EOSINOPHIL % (test code = EO%) 2.8 % 1-5 N BASOPHIL % (test code = BA%) 0.7 % 0.0-1.1 N NEUTROPHIL # (test code = NT#) 6.25 K/mm3 2.00-7.50 N LYMPHOCYTE # (test code = LY#) 4.80 K/mm3 1.50-4.00 H MONOCYTE # (test code = MO#) 1.08 K/mm3 0.2-0.8 H EOSINOPHIL # (test code = EO#) 0.39 K/mm3 0.04-0.4 N BASOPHIL # (test code = BA#) 0.10 K/mm3 0.02-0.10 N MANUAL DIFF REQUIRED (test code = MDIFF) YES MANUAL DIFF MANUAL DIFF REQUIRED. NUCLEATED RED BLOOD CELL (test code = NRBC) 0 % 0-0 N Notes Date/Time Note Provider Source 2021-03-24 18:49:00 [id number] [id number] [facility] [place] [address] PATIENT NAME: TIKI BARNARD ADMIT DATE: 03/24/21ACCOUNT NO: [id number] ROOM NO: AGE: 20 REPORT TYPE: OPERATIVE REPORT SEX: F ADMITTING PHYSICIAN: ATTENDING PHYSICIAN:Lesa Núñez MD OPERATION DATE: 03/24/2021 PRIMARY SURGEON: Lesa Núñez MD RAILROAD COOK: DIANA Haley ANESTHESIA: General endotracheal anesthesia. 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 POSTOPERATIVE DIAGNOSES: Right L1-L2 disk herniation with severe spinal andlateral stenosis. PROCEDURE: Right L1-L2 laminotomy medial facetectomy, foraminotomy, andmicrodiskectomy with use of the operating microscope. ESTIMATED BLOOD LOSS: 25 mL. BLOOD PRODUCTS: None. COMPLICATIONS: None. IMPLANTS: None. SPECIMENS: None. FINDINGS: A very large acute right L1-L2 disk herniation with central and rightparacentral components causing severe spinal and lateral stenosis, thoroughlydecompressed without complication. Chronic calcified central disk protrusion atL2 as well, partially taken down with downgoing curettes, but unable to fullyexcise remainder of calcified ligamentum and disk due to risk of spinal cordinjury. BRIEF HISTORY: The patient is a 20-year-old woman who presented with bilateralleg pain and numbness and paresthesias. She had been essentially wheelchairbound of her pain for the last several weeks to a few months. She was found tohave multiple disk herniations throughout her lumbar spine with the largest onebeing at L1-L2 on the right side, which had migrated superiorly resulting insevere spinal stenosis and conus medullaris and the thecal sac compression. Shepresents for surgery. PATIENT NAME: TIKI BARNARD DESCRIPTION OF PROCEDURE: The patient was brought to the operating room. General endotracheal was induced. She was placed in a prone position. Thelumbosacral spine was prepped and draped in standard sterile fashion. X-ray wastaken to localize the pathology. Incision was planned on the midline,infiltrated with 0.25% Marcaine and Exparel. Then, incision was made with a #10blade. Dissection proceeded with Bovie cautery to the lumbodorsal fascia, whichwas opened to the right of midline. A strict subperiosteal dissection wasundertaken to expose the right L1-L2 interlaminar space. A self-retainingretractor was placed in the wound and the operative microscope was brought intothe field. Another x-ray confirmed the appropriate level. Right L1-A1utmtqrounv and facetectomy and foraminotomy performed utilizing a matchstick burand Kerrison punches, taking the decompression above the ligament flavuminsertion on L1 and below and L2. The lateral border of thecal sac wasidentified and as well as the L2 nerve root, which was followed out around theL2 pedicle free of any compression. We then dissected superiorly finding thecentral disk herniation and right paracentral disk herniation, which hasmigrated superiorly. This was dissected off the dura and excised centrally andone extremely large fragment achieving a thorough decompression of the thecalsac centrally and laterally. There was additional calcified disk materialcentrally, which appeared to be part of the annulus and was disconnected fromthe disk space itself, but stuck to the annulus. It was dissected free off thedura given the large size of this. It was unable to be thoroughly completelyexcised centrally as this was at the level of L1-L2 with a conus and there wasno way to retract the dura that far to see the entire herniation and it wasthought that further dissection and attempts to remove this large calcifiedcentral fragment would result in spinal cord injury. Another x-ray was taken toconfirm that the operation was performed with the appropriate level and that theprobe was placed at the top of the calcified fragment, which was just at the topof the disk space. Most of the preoperative compression was actually above thedisk space until it was thought thorough decompression had been achieved of thethecal sac eventually. At this point, the thecal sac appeared patulous, free ofany compression. The wound was then irrigated with antibiotic irrigation. Hemostasis achieved with FloSeal, bipolar cautery and then wound was then closedwith layers of Vicryl suture. Steri-Strips and sterile dressing on the skin. The patient was then extubated by anesthesia staff and taken to recovery instable condition, moving all 4 extremities well with no complications and allcounts were correct at the end of the case x2. Dictated By: Lesa Núñez MD WT: OP:YHENRY/SERGEI/NTSDD: 03/24/2021 18:49:11DT: 03/24/2021 20:35:02Conf#: [id number]/DID#: [id number] Authenticated by Lesa Núñez MD On 06/30/2021 03:28:45 PM at 0328 PATIENT NAME: TIKI BARNARD [id number] lable for patient [id number] [facility]"
[2023-10-10] MEDS ORDERED: NA CHLORIDE 0.9% 1,000 ML ONE (13:10)
[2023-10-10] MEDS ORDERED: MORPHINE 4 MG/ML SYR ONE (13:10)
[2023-10-10] MEDS ORDERED: KETOROLAC 30 MG/ML INJ ONE (13:10)
[2023-10-10] MEDS ORDERED: ONDANSETRON 4 MG/2 ML VIAL ONE (13:10)
[2023-10-10 13:29] LABS: Absolute Eosinophils 0.1 K/uL (0-0.5); Absolute Lymphocytes (CBC) 2.2 K/uL (0.7-4.9); Absolute Monocytes 0.4 K/uL (0.1-1.3); Absolute Neutrophil 3.6 K/uL (1.8-8.0); Basophils % 0.4 % (0-1.3); Eosinophils % 0.9 % (0-4.4); Hematocrit 40.9 % (36.0-45.0); Hemoglobin 13.7 g/dL (12.0-15.0); Lymphocytes % 35.1 % (15.3-44.8); MCH 31.7 pg (27.0-35.0); MCHC 33.6 g/dL (32.0-36.0); MCV 94.5 fL (80-100); MPV 8.5 fL (7.6-11.3); Neutrophils % 56.6 % (41.7-73.7); Platelets 260 thou/uL (152-406); RBC Red Blood Cell Count 4.33 M/uL (3.86-4.86); Red Cell Distribution Width 13.3 % (12.1-15.2)
[2023-10-10 13:31] LABS: Specific Gravity 1.024 (1.005-1.030)
[2023-10-10 13:41] LABS: Specific Gravity 1.024 (1.005-1.030); Sqamous Epithelial 20-50 /HPF (None Seen); Transitional Epithelial <5 /HPF (None Seen); Urine Bacteria 20-50 /HPF (<20); Urine Bilirubin NEGATIVE (Negative); Urine Blood Negative (Negative); Urine Clarity Extremely Turbid (Clear); Urine Color Light-Yellow (Yellow); Urine Culture Reflex Order NOT NEEDED; Urine Glucose NEGATIVE (Negative); Urine Ketones NEGATIVE (Negative); Urine Microscopic Reflex YN ORDER UMIC; Urine Mucus 1+ /HPF (None Seen); Urine Nitrite NEGATIVE (Negative); Urine Protein TRACE (Negative); Urine Urobilinogen Normal (Normal); Urine WBC <5 /HPF (<5)
[2023-10-10 13:47] LABS: Albumin/Globulin Ratio 1.3 (1.1-1.8); Anion Gap 8.4 mEq/L (5.0-15.0); Bilirubin Total 0.5 mg/dL (0.2-1.0); Globulin 3.2 g/dL (2.3-3.5); Potassium 4.4 mEq/L (3.5-5.1); Protein, Total 7.2 g/dL (6.4-8.2)
--- NOTE | 2023-10-10 14:01 | RAD REPORT ---
EXAM DESCRIPTION: CT - Abdomen Pelvis Wo Contrast - 10/10/2023 1:41 pm CLINICAL HISTORY: Abdominal pain left flank pain COMPARISON: 2020 TECHNIQUE: Computed axial tomography of the abdomen and pelvis was obtained. IV and oral contrast we re not requested. All CT scans are performed using dose optimization technique as appropriate and may include automated exposure control or mA/KV adjustment according to patient size. FINDINGS: The evaluation of solid organs, vessels and bowel is limited secondary to the lack of con trast administration. Multiple, tiny bilateral renal calculi. No hydronephrosis. Small left renal cyst. Ureteral calculus i s not seen. No bladder calculus. Liver, spleen, pancreas and adrenals appear grossly normal The appendix is normal. There is no evidence of diverticulitis. No adnexal mass Small umbilical hernia Disc herniations L3-4 and L4-5 Lytic and sclerotic areas within the femoral heads bilaterally IMPRESSION: Multiple, tiny bilateral renal calculi. No hydronephrosis Disc herniations L3-4 and L4-5. If clinically indicated nonemergent MRI could be obtained Lytic and sclerotic areas within the femoral heads bilaterally likely avascular necrosis. If clinical ly indicated nonemergent MRI could be obtained
--- NOTE | 2023-10-10 14:36 | EDPHYS ---
Physician Documentation [facility] Name: Amber Owusu Age: 22 yrs Sex: Female : 2000 Arrival Date: 10/10/2023 Time: 12:09 Bed 5 Private MD: ED Physician Ke Rothman HPI: 10/09 12:57 This 22 yrs old Female presents to ER via Ambulatory with complaints of ec2 Abdominal Pain. 12:57 Patient arrives today for evaluation of left-sided flank pain. Patient complaining of ec2 left flank pain ongoing for multiple weeks patient denies any fevers or chills, reports that she does have some hematuria. Patient reports no previous abdominal surgeries, previous history of kidney stone, previous history of ureteral stent.. Historical: - Allergies: 12:24 No Known Allergies; nj1 - PMHx: 12:24 ADD/ADHD; Anxiety; Bipolar disorder; Depression; nj1 - PSHx: 12:24 back surgery; nj1 - Immunization history:: Client reports having NOT received the Covid vaccine. - Infectious Disease History:: Denies. - Social history:: Smoking status: Reported history of juuling and/or vaping. ROS: 12:57 Constitutional: as per hpi ec2 Exam: 12:57 Constitutional: GEN: NAD Head: atraumatic Eyes: EOMI Ears: External ears are ec2 normal. CV: regular rate LUNGS: no respiratory distress ABD: non-distended, soft, tender in the epigastrium, left flank TTP SKIN: no evidence of rashes MSK: no evidence of trauma NEURO: moves all extremities equally Vital Signs: 12:23 BP 119 / 77; Pulse 79; Resp 16; Temp 98.6; Pulse Ox 100% ; Weight 70.31 kg; Height 5 nj1 ft. 8 in. ; Pain 7/10; 13:14 BP 100 / 69; Pulse 79; Resp 18; Pulse Ox 100% on R/A; ph 14:58 BP 107 / 74; Pulse 76; Resp 18; Temp 97.9; Pulse Ox 99% on R/A; ph 12:23 Body Mass Index 23.57 (70.31 kg, 172.72 cm) nj1 12:23 Pain Scale: Adult nj MDM: 12:36 Patient medically screened. ec2 12:57 Data reviewed: vital signs. ED course: Patient arrives today for evaluation of left ec2 flank pain. Examination remarkable for abdominal findings as above. Will obtain lab work, urine studies, CT imaging. Evaluating for UTI, pyelonephritis, ureteral stone.. 14:29 ED course: Is reassuring, urine and is pertinent for contamination, RBCs present. CBC ec2 is reassuring, lipase reassuring, negative testing. CT imaging shows bilateral renal calculi with no obstruction appreciated, disc herniations noted. Bilateral possible avascular necrosis noted, patient not complain of any hip pain, this does not appear to be acute. Will have her follow-up outpatient for this. . 14:35 ED course: On reassessment patient well-appearing, reports improvement in symptoms. ec2 Will discharge home. Return precautions given.. 10/09 12:36 Order name: CBC with Diff; Complete Time: 14:28 ec2 10/09 12:36 Order name: CMP; Complete Time: 14:28 ec2 10/09 12:36 Order name: Lipase; Complete Time: 14:28 ec2 10/09 12:36 Order name: Test, Urine; Complete Time: 14:28 ec2 10/09 12:36 Order name: Urinalysis w/ reflexes; Complete Time: 14:28 ec2 10/09 12:57 Order name: CT Abd/Pelvis - Without Contrast; Complete Time: 14:28 ec2 10/09 12:36 Order name: IV Saline Lock; Complete Time: 13:08 ec2 10/09 12:36 Order name: Labs collected and sent; Complete Time: 13:08 ec2 Administered Medications: 13:15 Drug: NS 0.9% IV 1000 ml IV at 1 bolus Per protocol; 1000 mL bolus Route: IV; Rate: 1 kc6 bolus; Site: right antecubital; 14:59 Follow up: Response: No adverse reaction; IV Status: Completed infusion; IV Intake: ph 1000ml 13:15 Drug: Ketorolac IVP 15 mg IVP once Route: IVP; Site: right antecubital; kc6 14:59 Follow up: Response: No adverse reaction; Pain is decreased ph 13:15 Drug: morphine IVP or IV 4 mg IVP once over 4 mins Route: IVP; Infused Over: 4 mins; kc6 Site: right antecubital; 14:59 Follow up: Response: No adverse reaction ph 13:15 Drug: Ondansetron IVP 4 mg IVP once; over 2 minutes Route: IVP; Site: right antecubital;kc6 14:59 Follow up: Response: No adverse reaction ph Disposition Summary: 10/10/23 14:36 Discharge Ordered Condition: Stable ec2 Diagnosis - Flank Pain ec2 Followup: ec2 - With: Private Physician - When: - Reason: Re-evaluation by your physician Followup: ec2 - With: Jose F Johansen MD - When: - Reason: Recheck today's complaints Discharge Instructions: - Discharge Summary Sheet ec2 - Flank Pain, Adult, [id number] ec2 Forms: - Medication Reconciliation Form ec2 - Thank You Letter ec2 - Antibiotic Education ec2 - Prescription Opioid Use ec2 - Patient Portal Instructions ec2 - Leadership Thank You Letter ec2 Prescriptions: - acetaminophen-codeine 300-15 mg Oral tablet - take 1 tablet ORAL route every 8 hours; 15 tablet; Refills: 0, Product ec2 Selection Permitted Signatures: Dispatcher [employer] Ijeoma Melendez RN RN kc6 Tana Brower RN RN nj1 Ke Rothman MD MD ec2 Mira Del Valle RN ph
--- NOTE | 2023-10-10 14:36 | ER ---
Nurse's Notes [facility] Name: Amber Owusu Age: 22 yrs Sex: Female : 2000 Arrival Date: 10/10/2023 Time: 12:09 Bed 5 Private MD: Diagnosis: Flank Pain Presentation: 10/09 12:23 Chief complaint: Patient states: Left flank pain along with dysuria for 2 weeks, nj1 getting worse. Coronavirus screen: Vaccine status: Patient reports being unvaccinated. Ebola Screen: Patient denies travel to an Ebola-affected area in the 21 days before illness onset. Initial Sepsis Screen: Does the patient meet any 2 criteria? No. Patient's initial sepsis screen is negative. Does the patient have a suspected source of infection? No. Patient's initial sepsis screen is negative. Risk Assessment: Do you want to hurt yourself or someone else? Patient reports no desire to harm self or others. Onset of symptoms was August 2023. 12:23 Method Of Arrival: Ambulatory [facility] 12:23 Acuity: MARIPOSA 3 nj1 Triage Assessment: 12:26 General: Appears in no apparent distress. comfortable, Behavior is calm, cooperative, nj1 appropriate for age. Pain: Complains of pain in flank, left Pain currently is 7 out of 10 on a pain scale. Historical: - Allergies: 12:24 No Known Allergies; nj1 - PMHx: 12:24 ADD/ADHD; Anxiety; Bipolar disorder; Depression; nj1 - PSHx: 12:24 back surgery; nj1 - Immunization history:: Client reports having NOT received the Covid vaccine. - Infectious Disease History:: Denies. - Social history:: Smoking status: Reported history of juuling and/or vaping. Screenin:14 [facility] ED Fall Risk Assessment (Adult) History of falling in the last 3 months, ph including since admission No falls in past 3 months (0 pts) Confusion or Disorientation No (0 pts) Intoxicated or Sedated No (0 pts) Impaired Gait No (0 pts) Mobility Assist Device Used No (0 pt) Altered Elimination No (0 pt) Score/Fall Risk Level 0 - 2 = Low Risk Oriented to surroundings, Maintained a safe environment, Hourly rounding (assess needs \T\ fall precautionary measures) done. Abuse screen: Denies threats or abuse. Denies injuries from another. Nutritional screening: No deficits noted. Tuberculosis screening: No symptoms or risk factors identified. Assessment: 13:12 General: Appears in no apparent distress. Behavior is calm, cooperative. Pain: ph Complains of pain in posterior aspect of left lateral abdomen and anterior aspect of left lateral abdomen. Neuro: Level of Consciousness is awake, alert, obeys commands, Oriented to person, place, time, situation. Cardiovascular: Capillary refill < 3 seconds in bilateral fingers Patient's skin is warm and dry. Respiratory: Airway is patent Respiratory effort is even, unlabored. GI: Reports nausea, Patient currently denies diarrhea, vomiting. : Reports burning with urination, pain in left flank(s). Derm: Skin is pink, warm \T\ dry. 14:58 Reassessment: Patient appears in no apparent distress at this time. Patient and/or ph family updated on plan of care and expected duration. Pain level reassessed. Patient is alert, oriented x 3, equal unlabored respirations, skin warm/dry/pink. Vital Signs: 12:23 BP 119 / 77; Pulse 79; Resp 16; Temp 98.6; Pulse Ox 100% ; Weight 70.31 kg; Height 5 nj1 ft. 8 in. ; Pain 7/10; 13:14 BP 100 / 69; Pulse 79; Resp 18; Pulse Ox 100% on R/A; ph 14:58 BP 107 / 74; Pulse 76; Resp 18; Temp 97.9; Pulse Ox 99% on R/A; ph 12:23 Body Mass Index 23.57 (70.31 kg, 172.72 cm) nj1 12:23 Pain Scale: Adult nj1 ED Course: 12:11 Patient arrived in ED. mr 12:12 Ke Rothman MD is Attending Physician. ec2 12:24 Triage completed. nj1 12:25 Arm band placed on right wrist. nj1 12:36 Mira Del Valle, CAROL is Primary Nurse. ph 12:37 Patient placed in an exam room, on a stretcher. ll1 13:07 Inserted saline lock: 22 gauge in right antecubital area, using aseptic technique. ld1 Blood collected. 13:08 Urinalysis w/ reflexes Sent. ld1 13:14 Patient has correct armband on for positive identification. Bed in low position. Call ph light in reach. Side rails up X 1. Pulse ox on. NIBP on. 13:43 CT Abd/Pelvis - Without Contrast In Process Unspecified. EDMS 14:37 Jose F Johansen MD is Referral Physician. ec2 14:58 No provider procedures requiring assistance completed. IV discontinued, intact, ph bleeding controlled, No redness/swelling at site. Pressure dressing applied. Administered Medications: 13:15 Drug: NS 0.9% IV 1000 ml IV at 1 bolus Per protocol; 1000 mL bolus Route: IV; Rate: 1 kc6 bolus; Site: right antecubital; 14:59 Follow up: Response: No adverse reaction; IV Status: Completed infusion; IV Intake: ph 1000ml 13:15 Drug: Ketorolac IVP 15 mg IVP once Route: IVP; Site: right antecubital; kc6 14:59 Follow up: Response: No adverse reaction; Pain is decreased ph 13:15 Drug: morphine IVP or IV 4 mg IVP once over 4 mins Route: IVP; Infused Over: 4 mins; kc6 Site: right antecubital; 14:59 Follow up: Response: No adverse reaction ph 13:15 Drug: Ondansetron IVP 4 mg IVP once; over 2 minutes Route: IVP; Site: right antecubital;kc6 14:59 Follow up: Response: No adverse reaction ph Medication: 13:14 VIS not applicable for this client. ph Intake: 14:59 IV: 1000ml; Total: 1000ml. ph Outcome: 14:36 Discharge ordered by . ec2 14:59 Discharged to home ambulatory, with significant other, ph 14:59 Condition: good 14:59 Discharge instructions given to patient, Instructed on discharge instructions, follow up and referral plans. Demonstrated understanding of instructions, follow-up care, 15:00 Patient left the ED. ph Signatures: Dispatcher [employer] EDAK Rita Salcido, Reg Reg mr Mira Del Valle, RN CAROL ph Mary Umanzor RN RN ll1 Demetrice Cooper RN RN kelly1 Ijeoma Mckinney RN RN kc6 Tana Brower RN RN nj1 Ke Rothman MD MD ec2
[2023-10-10 15:36] VITALS: BP 107/74; TEMP 97.9; O2SAT 99
== END 2023-10-10 15:00 | disposition home or self-care (01) ==
LOC: ER 12:09
DX: R10.9 Unspecified abdominal pain (principal)
CPT/HCPCS: 36415; 74176; 80053; 81001; 81025; 83690; 85025; J2405; J7030

== ENCOUNTER 2024-06-27 17:49 | Emergency (ER) | payer SELFPAY ==
--- OUTSIDE RECORDS SUMMARY | 2024-06-27 17:52 | XMS REPORT | Continuity of Care Document ---
Author Name Unknown Address [address] [facility] [address] [place] [address] [facility] thconnect Address [address] [facility] [address] [place] [address] Care Team Providers Care Operations Controller Name Role Phone JOHNATHONHARJINDERCARLITO Primary Care Physician Unavaila ble PVH_GC_VIRTUAL_PROV Attending Clinician Unavaila ble GC_GCBZW_Kadiyala_S Attending Clinician Unavaila ROSIE Coe S Attending Clinician Unavailable Rosie Cornell Attending Clinician [phone] Lesa Núñez Attending Clinician Unavailable PVH_GC_VIRTUAL_PROV Admitting Clinician Unavaila ble GC_GCBZW_Kadiyala_S Admitting Clinician Unavaila ROSIE Coe S Admitting Clinician Unavailable Lesa Núñez Admitting Clinician Unavailable Payers Payer Name Policy Type Policy Number Effective Date Expirati on Date Source GENERIC COMMERCIAL - MOVED HOLD [id number] [facility] [id number] 2021 00:00:00 Allergies, Adverse Reactions, Alerts Allergy Name Allergy Type Status Severity Reaction(s) Onset Date Inactive Date Treating Clinician Comments Source No Known Allergie s DA Active U 03-18 00:00: 00 [facility] No Known Allergie s DA Active U 03-18 00:00: 00 [facility] NO KNOWN ALLERGIE S Drug Class Active General acute hospital Social History Social Habit Start Date Stop Date Quantity Comments Source Sex Assigned At 2000 00:00:00 2000 00:00:00 [facility] Smoking Status Start Date Stop Date Source Tobacco smoking consumption unknown [facility] Medications Ordered Medication Name Filled Medication Name Start Date Stop Date Current Medication? Ordering Clinician Indication Dosage Frequency Signature (SIG) Comments Components Source NaCl 0.9% (NS) bolus infusion 1,000 mL 12-26 22:15: 00 12-27 00:03 :00 No 1000mL at 999 mL/hr, 1,000 mL, IV Infusion, ONCE, 1 dose, On Sun12/26/22 at 1715, STAT General acute hospital ondansetron (ZOFRAN (PF)) injection 4 mg 12-26 21:15: 00 12-26 21:33 :00 No 4mg 4 mg, Slow IV Push, ONCE, 1 dose, On Sun12/26/22 at 1615, NICKIE General acute hospital HYDROcodone -acetaminop hen (NORCO 5) 5-325 mg tablet 1 tablet 12-26 21:15: 00 12-26 21:33 :00 No 1{tbl} 1 tablet, Oral, ONCE, 1 dose, On Sun12/26/22 at 1615, [facility] proMETHazin e 25 mg tablet 12-26 00:00: 00 12-26 00:00 :00 No [id number] 25mg Take 1 tablet by mouth every 6 (six) hours as needed for Nausea and Vomiting (N/V). General acute hospital Vital Signs Vital Name Observation Time Observation Value Comments S kelsey Systolic blood pressure 2022-12-26 20:22:00 122 mm[Hg] [facility] Diastolic blood pressure 2022-12-26 20:22:00 96 mm[Hg] [facility] Heart rate 2022-12-26 20:22:00 89 /min [facility] Body temperature 2022-12-26 20:22:00 38 Sherrie [facility] Respiratory rate 2022-12-26 20:22:00 16 /min [facility] Body height 2022-12-26 20:22:00 165.1 cm [facility] Body weight 2022-12-26 20:22:00 63.5 kg [facility] BMI 2022-12-26 20:22:00 23.30 kg/m2 [facility] Oxygen saturation in Arterial blood by Pulse oximetry 2022-12-26 20:22:00 100 /min [place] [facility] Procedures Procedure Date / Time Performed Performing Clinician Source ABORH CONFIRMATION (LAB ONLY) 2022-12-26 22:34:00 Rosie Carter [facility] US FIRST TRIMESTER LESS THAN 14 WEEKS WITH TRANSVAGINAL 2022-12-26 22:30:[address] [facility] POCT TEST 2022-12-26 21:10:00 Rosie Carter [facility] COMP. METABOLIC PANEL (90709) 2022-12-26 21:03:00 Rosie Carter [facility] TOTAL BETA HCG ASSAY 2022-12-26 21:03:00 Rosie Carter [facility] CBC WITH DIFF 2022-12-26 21:03:00 Rosie Carter [facility] URINALYSIS 2022-12-26 21:03:00 [facility] ABO GROUPING 2022-12-26 21:03:00 [facility]/REFUSAL FOR DIAGNOSIS AND TREATMENT 2022-12-26 20:01:52 Doctor Unassigned, Lebo [facility] NOTICE OF PRIVACY PRACTICES 2022-12-26 20:01:14 Doctor Unassigned, Lebo [facility] Encounters Start Date/Time End Date/Time Encounter Type Admission Type Attending Clinicians Care Facility Care Department Encounter ID Source 2023-06-22 00:00:00 2023-06-22 00:00:00 Outpatient PVH_GC_VIRT UAL_PROV PRIV PRIV [id number] [facility] 2023-04-28 00:00:00 2023-04-28 00:00:00 Outpatient GC_GCBZW_Ka Shen [facility] [id number] [facility] 2022-12-26 15:23:00 2022-12-26 19:55:00 Emergency X ROSIE CARTER [facility] ERT [id number] [facility] 2022-12-26 15:23:00 2022-12-26 19:55:00 Emergency Rosie Carter S [facility] [id number] General acute hospital 2021-03-18 08:45:00 2021-03-24 11:23:00 Inpatient EL Lesa Núñez HCATO SURG [id number] [facility] 2021-03-18 15:34:00 2021-03-18 15:34:00 Outpatient Lesa Núñez HCACL LABO [id number] 55 [facility] Results Test Description Test Time Test Comments Results Result Co mments Source [facility] (77767)2022-12-26 21:51:59* Test Item Value Reference Range Interpretation Comme nts NA (test code = 4482198203) 139 mmol/L 135-145 K (test code = 9653964896) 3.6 mmol/L 3.5-5.0 CL (test code = 2028845747) 104 mmol/L 98-108 CO2 TOTAL (test code = 8772192107) 22 mmol/L 23-31 L AGAP (test code = 6931447796) 13 2-16 BUN (test code = 1048173986) 7 mg/dL 7-23 GLUCOSE (test code = 0013659075) 93 mg/dL 70-110 CREATININE (test code = 7317373538) 0.46 mg/dL 0.50-1.04 L TOTAL BILI (test code = 2623101786) 0.9 mg/dL 0.1-1.1 CALCIUM (test code = 1936385872) 9.4 mg/dL 8.6-10.6 T PROTEIN (test code = 4541323406) 7.3 g/dL 6.3-8.2 ALBUMIN (test code = 5038320615) 4.7 g/dL 3.5-5.0 ALK PHOS (test code = 5508534505) 37 U/L 34-122 ALTv (test code = 1742-6) 16 U/L 5-35 AST(SGOT) (test code = 7383214130) 19 U/L 13-40 eGFR (test code = 1208279308) 166.9 mL/min/1.73m2 АННА (test code = АННА) [...] imaging tests). Lab Interpretation (test code = 19309-0) Abnormal [facility] WITH [id number] 21:39:57* Test Item Value Reference Range Interpretation Comme nts WBC (test code = 6690-2) 11.05 See_Comment [Automated messa ge] The system which generated this result transmitted reference range: 4.30 - 11.10 10*3/?L. The reference range was not used to interpret this result as normal/abnormal. RBC (test code = 789-8) 4.09 See_Comment [Automated [employer] ge] The system which generated this result [...] 35.1 g/dL 31.6-35.1 RDW-SD (test code = 09446-4) 38.9 fL 39.0-49.9 L RDW-CV (test code = 788-0) 12.0 % 12.0-15.5 PLT (test code = 777-3) 260 See_Comment [Automated [employer]] The system which generated this result transmitted reference range: 166 - 358 10*3/?L. The reference range was not used to interpret this result as normal/abnormal. MPV (test code = 23226-8) 10.7 fL 9.5-12.9 NRBC/100 WBC (test code = 0543515486) 0.0 See_Comment [Automated [employer] ssage] The system which generated this result transmitted reference range: 0.0 - 10.0 /100 WBCs. The reference range was not used to interpret this result as normal/abnormal. NRBC x10^3 (test code = 5981262997) See_Comment [Automated [employer] ge] The system which generated this result transmitted reference range: 10*3/?L. The reference range was not used to interpret this result as normal/abnormal. GRAN MAT (NEUT) % (test code = 770-8) 63.8 % IMM GRAN % (test code = 8081522457) 0.30 % LYMPH % (test code = 736-9) 28.7 % MONO % (test code = 5905-5) 6.2 % EOS % (test code = 713-8) 0.5 % BASO % (test code = 706-2) 0.5 % GRAN MAT x10^3(ANC) (test code = 3475304026) 7.06 10*3/uL 1.88-7.09 IMM GRAN x10^3 (test code = 3037781675) 0.03 10*3/uL 0.00-0.06 LYMPH x10^3 (test code = 731-0) 3.17 10*3/uL 1.32-3.29 MONO x10^3 (test code = 742-7) 0.69 10*3/uL 0.33-0.92 EOS x10^3 (test code = 711-2) 0.05 10*3/uL 0.03-0.39 BASO x10^3 (test code = 704-7) 0.05 10*3/uL 0.01-0.07 Lab Interpretation (test code = 09221-4) [facility]normal [facility] - ONCE [id number] 21:34:00 * Test Item Value Reference Range Interpretation Comme nts ABO & RH (test code = 20) O Positive IAT (test code = 1185) Negative [facility] [id number] 21:10:00* Test Item Value Reference Range Interpretation Comme nts POCT PREG (test code = 1605) Positive On board controls acceptable with C Line (test code = 3574) Yes POCT PREG LOT # (test code = 3577) [id number] POCT PREG TEST DATE ( test code = 3576) 06/13/2024 Lab Interpretation (test cod e = 72871-9) Normal [facility]- XR SPINE 1 V SPEC [id number] 07:42:00 [facility] 2000 Sex: F Patient Name: TIKI BARNARD Unit No: [id number] EXAMS: CPT CODE: [id number] XR SPINE 1 V SPEC [id number] INTRAOPERATIVE LATERAL LUMBAR SPINE Film 1. A marker is posterior to L2. Film 2. A surgical instrument is posterior to L1-2. Film 3. Surgical instruments are posterior to L1-2 and L2 at 0742 Reported and signed by: Dalton Morrow MD CC: Lesa Núñez MD Technologist: TRACE SINGLETON (RT.R) Transcribed D/ (0742) RadhaL [facility] NAME: TIKI BARNARD [address] [place] [address] PHYS: Lesa Sr MD : 2000 AGE: 20 SEX: F [place] [address] LOC: Y.MARZENA PHONE #: [phone] EXAM DATE: 03/24/2021 STATUS: [facility] FAX #: [phone] RAD #: D/C DT PAGE 1 Signed Report Patient Name: TIKI BARNARD Unit No: [id number] EXAMS: CPT CODE: [id number] XRSPINE 1 V SPEC LEVEL 37428 (Continued) Orig Print D/T: S: 03/25/2021 (0745) [facility] NAME: TIKI BARNARD [address] [place] [address] PHYS: Lesa Sr MD : 2000 AGE: 20 SEX: F [place] [address] LOC: Y.MARZENA PHONE #: [phone] EXAM DATE: 03/24/2021 STATUS: [facility] FAX #: [phone] RAD #: D/C DT PAGE 2 Signed Report- XR SPINE 1 V SPEC [id number] 07:42:[address] [facility] : 2000 Sex: F Patient Name: TIKI BARNARD Unit No: [id number] EXAMS: CPT CODE: [id number] XR SPINE 1 V SPEC LEVEL 45017 INTRAOPERATIVE LATERAL LUMBAR SPINE Film 1. A marker is posterior to L2. Film 2. A surgicalinstrument is posterior to L1-2. Film 3. Surgical instruments are posterior to L1-2 and L2 at 0742 Reported and signed by: Octavio Morrow MD CC: Lesa Núñez MD Technologist: TRACE SINGLETON (RT.R) Transcribed D/ (0742) RadhaJCL [facility] NAME: TIKI BARNARD [address] [place] [address] PHYS: Lesa Sr MD : 2000 AGE: 20 SEX: F [place], [place] [address] LOC: STEVO PHONE #: [phone] EXAM DATE: 03/24/2021 STATUS: [facility] FAX #: [phone] RAD #: D/C DT PAGE 1 Signed Report Patient Name: TIKI BARNARD Unit No: [id number] EXAMS: CPT CODE: [id number] XRSPINE 1 V SPEC LEVEL 46447 (Continued) Orig Print D/T: S: 03/25/2021 (0745) [facility] NAME: TIKI BARNARD [address] [place] [address] PHYS: Lesa Sr MD : 2000 AGE: 20 SEX: F [place], [place] [address] LOC: STEVO PHONE #: [phone] EXAM DATE: 03/24/2021 STATUS: [facility] FAX #: [phone] RAD #: D/C DT PAGE 2 Signed Report- XR SPINE 1 V SPEC [id number] 07:42:[address] [facility] : 2000 Sex: F Patient Name: TIKI BARNARD Unit No: [id number] EXAMS: CPT CODE: [id number] XR SPINE 1 V SPEC LEVEL 54577 INTRAOPERATIVE LATERAL LUMBAR SPINE Film 1. A marker is posterior to L2. Film 2. A surgical instrument is posterior to L1-2. Film 3. Surgical instruments are posterior to L1-2 and L2 at 0742 Reported and signed by: Octavio Morrow MD CC: Lesa Núñez MD Technologist: TRACE SINGLETON (RT.R) Transcribed D/ (0742) tJACQUELINERBhavinJCL [facility] NAME: TIKI BARNARD [address] [facility] [address] PHYS: Lesa Sr MD : 2000 AGE: 20 SEX: F [place], [place] [address] LOC: DavidMARZENA PHONE #: [phone] EXAM DATE: 03/24/2021 STATUS: [facility] FAX #: [phone] RAD #: D/C DT PAGE1 Signed Report Patient Name: TIKI BARNARD Unit No: [id number] EXAMS: CPT CODE: [id number] XR SPINE 1 V SPEC LEVEL 00461 (Continued) Orig Print D/T: S: 03/25/2021 (0745) [facility] NAME: TIKI BARNARD [address] [facility] PHYS: GISTA - Niya,Lesa Segovia MD : 2000 AGE: 20 SEX: F [place], [place] [address] LOC: STEVO PHONE #: [phone] EXAM DATE: 03/24/2021 STATUS: [facility] FAX #: [phone] RAD #: D/C DT PAGE 2 Signed ReportNovel Coronavirus 2018 [id number] 22:44:00* Test Item Value Reference Range Interpretation Comme nts Novel Coronavirus 2018 Inhouse (test code = COVNONPUI) Negative Negative Positive resul ts are indicative of the presence mcTUZF-ElV-3 RNA, clinical correlation with patient historyand other [...] identification of SARS-CoV-2 RNA usingthe [employer] M2000 System under the FDA Emergency UseAuthorization. The testing is performed by personneltrained in the procedures for the [employer] M2000 moleculardiagnostic SARS-CoV-2 assay in vitro. Novel Coronavirus 2018 [id number] 22:43:00* Test Item Value Reference Range Interpretation Comme nts Novel Coronavirus 2018 Inhouse (test code = COVNONPUI) Negative Negative Positive resul ts are indicative of the presence biBZBD-YtT-3 RNA, clinical correlation with patient historyand other [...] for the identification of SARS-CoV-2 RNA usingthe [employer] M2000 System under the FDA Emergency UseAuthorization. The testing is performed by personneltrained in the procedures for the [employer] M2000 moleculardiagnostic SARS-CoV-2 assay in vitro. CBC W/MANUAL [id number] 10:12:00* Test Item Value Reference Range Interpretation [...] MYELO) 1 % 0-0 H BASIC METABOLIC [id number] 10:08:00* Test Item Value Reference Range Interpretation [...] 96.6 >60 Unit of m easure: mL/min/1.73 s9Dokivblsh Range:Healthy Adults >90 mL/min/1.73 m2 For Chronic Kidney Disease: Stage II Mild Decrease in GFR 60-90 Stage III Moderate Decrease in GFR 30-59 Stage IV Severe Decrease in GFR 15-29 Stage V Kidney Failure <15 CREATININE (test code = CREAT) 0.75 mg/dL 0.55-1.30 N CALCIUM (test code = CA) 8.2 mg/dL 8.2-10.1 N PROTHROMBIN [id number] 10:07:00* Test Item Value Reference Range Interpretation [...] intravascular valves IS PATIENT ON ANTICOAGULANTS ? [facility] been notified if Patient is on Heparin Drip? NOTHROMBOPLASTIN TIME [id number] 10:07:00* Test Item Value Reference Range Interpretation Comme nts PTT ACTIVATED (test code = APTT) 26.0 secs 24.9-37.0 N IS PATIENT ON ANTICOAGULANTS ? [facility] been notified if Patient is on Heparin Drip? NOCBC W/AUTO [id number] 09:56:00* Test Item Value Reference Range Interpretation [...] (test code = NRBC) 0 % 0-0 N"
[2024-06-27] MEDS ORDERED: ONDANSETRON 4 MG/2 ML VIAL ONE (18:44)
[2024-06-27] MEDS ORDERED: KETOROLAC 30 MG/ML INJ ONE (18:44)
[2024-06-27] MEDS ORDERED: DIAZEPAM 10 MG/2 ML INJ SYRINGE ONE (18:44)
[2024-06-27] MEDS ORDERED: dexAMETHasone 10 MG/ML VIAL ONE (18:44)
[2024-06-27] MEDS ORDERED: MORPHINE 4 MG/ML SYR ONE (18:45)
[2024-06-27] MEDS ORDERED: NA CHLORIDE 0.9% 1,000 ML ONE (18:45)
[2024-06-27 18:48] LABS: Absolute Basophils 0.1 K/uL (0-0.5); Absolute Eosinophils 0.2 K/uL (0-0.5); Absolute Lymphocytes (CBC) 2.4 K/uL (0.7-4.9); Absolute Monocytes 0.7 K/uL (0.1-1.3); Absolute Neutrophil 4.4 K/uL (1.8-8.0); Basophils % 0.8 % (0-1.3); Eosinophils % 2.1 % (0-4.4); Hematocrit 40.5 % (36.0-45.0); Hemoglobin 13.7 g/dL (12.0-15.0); Lymphocytes % 31.1 % (15.3-44.8); MCH 31.3 pg (27.0-35.0); MCHC 33.7 g/dL (32.0-36.0); MCV 92.9 fL (80-100); Monocytes % 8.6 % (3.3-12.3); Neutrophils % 57.4 % (41.7-73.7); Nucleated Red Blood Cells % 0.1 % (0-0); Platelets 226 thou/uL (152-406); RBC Red Blood Cell Count 4.36 M/uL (3.86-4.86); Red Cell Distribution Width 12.8 % (12.1-15.2)
[2024-06-27 19:03] LABS: Specific Gravity 1.019 (1.005-1.030)
[2024-06-27 19:04] LABS: Albumin 3.6 g/dL (3.4-5.0); Albumin/Globulin Ratio 1.1 (1.1-1.8); Anion Gap 6.7 mEq/L (5.0-15.0); Bilirubin Total 0.3 mg/dL (0.2-1.0); Globulin 3.2 g/dL (2.3-3.5); Potassium 3.7 mEq/L (3.5-5.1); Protein, Total 6.8 g/dL (6.4-8.2)
[2024-06-27 19:06] LABS: Specific Gravity 1.019 (1.005-1.030); Sqamous Epithelial <5 /HPF (None Seen); Urine Bacteria None Seen /HPF (<20); Urine Bilirubin NEGATIVE (Negative); Urine Blood Negative (Negative); Urine Clarity Clear (Clear); Urine Color Light-Yellow (Yellow); Urine Culture Reflex Order NOT NEEDED; Urine Glucose NEGATIVE (Negative); Urine Ketones NEGATIVE (Negative); Urine Microscopic Reflex YN ORDER UMIC; Urine Nitrite NEGATIVE (Negative); Urine Protein NEGATIVE (Negative); Urine RBC <5 /HPF (None Seen); Urine Urobilinogen Normal (Normal); Urine WBC <5 /HPF (<5)
--- NOTE | 2024-06-27 20:28 | RAD REPORT ---
EXAMINATION: CT LUMBAR SPINE WITHOUT CONTRAST CLINICAL INDICATION: Female, 23 years old. PAIN TECHNIQUE: Axial CT images were obtained through the lumbar spine in soft tissue and bone windows wit hout intravenous contrast. Coronal and Sagittal reformatted images were created from the data set. One or more of the following dose reduction techniques were used: Automated exposure control, adjustm ent of the mA and/ or kV according to patient size, and/or iterative reconstruction. Unless otherwise specified, incidental findings do not require dedicated imaging follow-up. COMPARISON: No prior exam. FINDINGS: For purposes of this dictation, it is assumed that there are 5 non rib-bearing lumbar type vertebrae, and the most caudal fully segmented lumbar vertebra is labeled L5. ALIGNMENT: The lumbar spine demonstrates normal alignment without scoliosis or spondylolisthesis. BONES: No significant soft tissue abnormalities. No aggressive osseous lesions. Multilevel Schmorl's node formation. DISCS: Intervertebral disc space heights are maintained. LEVELS: Multilevel disc bulges at L1-2, L3-4, and L4-5, with degrees of annular mineralization. Findi ngs contribute to effacement of the thecal sac, up to moderate degrees at all 3 levels. Mild to moderate degrees of neural foraminal narrowing bilaterally at all those levels, as well as at L2-3 wh ere mild disc bulge also exists. SOFT TISSUE: No soft tissue abnormalities. Right renal upper to mid pole 3 mm nonobstructing calculus and other left renal nonobstructing calculi not exceeding 2 mm. Mild free fluid in the pelvis. IMPRESSION: No acute lumbar spine abnormalities. Discogenic changes as above, contributing to degrees of thecal s ac effacement and neural foraminal narrowing as detailed above. If there is concern for radiculopathy, additional evaluation by lumbar spine MRI with provide improved assessment. Bilateral nonobstructing renal calculi. Mild free fluid noted in pelvis.
--- NOTE | 2024-06-27 20:32 | ER ---
Nurse's Notes [facility] Name: Amber Owusu Age: 23 yrs Sex: Female : 2000 Arrival Date: 06/27/2024 Time: 17:49 Bed 19 Private MD: Diagnosis: Sciatica;Strain of muscle, fascia and tendon of abdomen, lower back and pelvis;Low back pain;Radiculopathy, lumbar region;Radiculopathy, lumbosacral region Presentation: 06/27 18:02 Chief complaint: Patient states: LOW BACK PAIN WITH A HX OF BACK SX 2021 HAS HERNIATED db DISC. STATES TODAY BENT OVER FELT SHARP PAIN AND NOW IS UNABLE TO MOVE WITHOUT PAIN. TOOK MUSCLE RELAXER AROUND 1400 THAT DID NOT HELP. Coronavirus screen: Client denies travel out of the [place] in the last 14 days. At this time, the client does not indicate any symptoms associated with coronavirus-19. Ebola Screen: Patient negative for fever greater than or equal to 101.5 degrees Fahrenheit, and additional compatible Ebola Virus Disease symptoms Patient denies exposure to infectious person. Patient denies travel to an Ebola-affected area in the 21 days before illness onset. No symptoms or risks identified at this time. Initial Sepsis Screen: Does the patient meet any 2 criteria? No. Patient's initial sepsis screen is negative. Does the patient have a suspected source of infection? No. Patient's initial sepsis screen is negative. Risk Assessment: Do you want to hurt yourself or someone else? Patient reports no desire to harm self or others. Onset of symptoms was June 27, 2024. 18:02 Method Of Arrival: Wheelchair db 18:02 Acuity: MARIPOSA 3 db Triage Assessment: 18:04 General: Appears in no apparent distress. uncomfortable, Behavior is cooperative, db anxious. Pain: Complains of pain in back. Neuro: Level of Consciousness is awake, alert, obeys commands, Oriented to person, place, time, situation. Respiratory: Airway is patent Respiratory effort is even, unlabored, Respiratory pattern is regular, symmetrical. 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 - Infectious Disease History:: Denies. - Social history:: Smoking status: Patient denies any tobacco usage or history of. - Family history:: not pertinent. Screenin:00 [facility] ED Fall Risk Assessment (Adult) History of falling in the last 3 months, me1 including since admission No falls in past 3 months (0 pts) Confusion or Disorientation No (0 pts) Intoxicated or Sedated No (0 pts) Impaired Gait No (0 pts) Mobility Assist Device Used No (0 pt) Altered Elimination No (0 pt) Score/Fall Risk Level 0 - 2 = Low Risk Maintained a safe environment, Provided non-skid footwear, Hourly rounding (assess needs \T\ fall precautionary measures) done. Abuse screen: Denies threats or abuse. Nutritional screening: No deficits noted. Tuberculosis screening: No symptoms or risk factors identified. Assessment: 18:00 General: Appears uncomfortable, well groomed, well developed, well nourished, Behavior me1 is calm, cooperative, appropriate for age, Reports LOW BACK PAIN WITH A HX OF BACK SX 2021 HAS HERNIATED DISC. STATES TODAY BENT OVER FELT SHARP PAIN AND NOW IS UNABLE TO MOVE WITHOUT PAIN. TOOK MUSCLE RELAXER AROUND 1400 THAT DID NOT HELP. Pain: Complains of pain in back Pain does not radiate. Pain currently is 10 out of 10 on a pain scale. Quality of pain is described as sharp, Pain began suddenly, Is continuous. Neuro: Level of Consciousness is awake, alert, obeys commands, Oriented to person, place, time, situation, Appropriate for age. Cardiovascular: Patient's skin is warm and dry. Respiratory: Airway is patent Respiratory effort is even, unlabored, Respiratory pattern is regular, symmetrical. GI: No signs and/or symptoms were reported involving the gastrointestinal system. : No signs and/or symptoms were reported regarding the genitourinary system. EENT: No signs and/or symptoms were reported regarding the EENT system. Derm: Skin is intact, is healthy with good turgor, Skin is pink, warm \T\ dry. Musculoskeletal: Reports pain in back since earlier today. Injury Description: LOW BACK PAIN WITH A HX OF BACK SX 2021 HAS HERNIATED DISC. STATES TODAY BENT OVER FELT SHARP PAIN AND NOW IS UNABLE TO MOVE WITHOUT PAIN. TOOK MUSCLE RELAXER AROUND 1400 THAT DID NOT HELP. Vital Signs: 18:02 BP 117 / 86; Pulse 127; Resp 20; Temp 99.6(O); Pulse Ox 99% ; Weight 81.65 kg; Height 5 db ft. 8 in. ; Pain 9/10; 19:00 BP 129 / 93; Pulse 92; Resp 16; Pulse Ox 100% ; me1 19:12 Pain 3/10; me1 20:00 BP 118 / 82; Pulse 98; Resp 16; Temp 98.4; Pulse Ox 100% ; me1 18:02 Body Mass Index 27.37 (81.65 kg, 172.72 cm) db 18:02 Pain Scale: Adult db 19:12 Pain Scale: Adult me1 ED Course: 17:52 Patient arrived in ED. im 17:57 Yoni Burns MD is Attending Physician. lynda 18:00 Patient has correct armband on for positive identification. Bed in low position. Call me1 light in reach. Side rails up X2. Provided Education on: POC. Verbalized understanding.. Client placed on continuous cardiac and pulse oximetry monitoring. NIBP monitoring applied. Pulse ox on. NIBP on. 18:00 No provider procedures requiring assistance completed. me1 18:04 Triage completed. db 18:04 Arm band placed on Patient placed in an exam room. db 18:11 Khloe Martinez, RN is Primary Nurse. me1 18:41 Initial lab(s) drawn, by fl, sent to lab. Inserted saline lock: 22 gauge in right me1 antecubital area, using aseptic technique. 19:24 CT Lumbar Spine Wo Con In Process Unspecified. EDMS 20:32 Heath Jaimes MD is Referral Physician. lynda 20:46 IV discontinued, intact, bleeding controlled, No redness/swelling at site. Pressure me1 dressing applied. Administered Medications: 18:57 Drug: NS 0.9% IV 1000 ml IV at 1000 ml once; to be given as a bolus over 60 minutes me1 Route: IV; Rate: 1000 ml; Site: right antecubital; 20:32 Follow up: Response: No adverse reaction; IV Status: Completed infusion; IV Intake: me1 1000ml 18:58 Drug: Ondansetron IVP 4 mg IVP once; over 2 minutes Route: IVP; Site: right antecubital;me1 19:11 Follow up: Response: No adverse reaction; Nausea is decreased me1 19:08 Drug: Diazepam PO 10 mg PO once Route: PO; me1 19:12 Follow up: Response: No adverse reaction; Pain is decreased me1 19:08 Drug: morphine IVP or IV 4 mg IVP once over 4 mins Route: IVP; Infused Over: 4 mins; me1 Site: right antecubital; 19:12 Follow up: Pain 3/10 Adult; Response: No adverse reaction; Pain is decreased me1 19:09 Drug: Ketorolac IVP 30 mg IVP once Route: IVP; Site: right antecubital; me1 19:12 Follow up: Response: No adverse reaction; Pain is decreased me1 19:09 Drug: Decadron - Dexamethasone IVP 10 mg IVP once Route: IVP; Site: right antecubital; me1 19:11 Follow up: Response: No adverse reaction me1 Medication: 18:00 VIS not applicable for this client. me1 Intake: 20:32 IV: 1000ml; Total: 1000ml. me1 Outcome: 20:31 Discharge ordered by MD. howell 20:46 Discharged to home via wheelchair, with significant other, me1 20:46 Condition: stable 20:46 Discharge instructions given to patient, significant other, Instructed on discharge instructions, follow up and referral plans. medication usage, Demonstrated understanding of instructions, follow-up care, medications, Prescriptions given X 3, 20:46 Patient left the ED. me1 Signatures: Dispatcher [employer] [facility] Yoni Burns MD MD cha Benton, Danielle, RN RN Sheela Milton Michelle, RN RN me1 Corrections: (The following items were deleted from the chart) 18:30 18:02 Chief complaint: Patient states: LOW BACK PAIN WITH A HX OF BACK SX 2021 HAS me1 HERNIATED DISC. STATES TODAY BENT OVER FELT SHARP PAIN AND NOW IS UNABLE TO MOVE WITHOUT PAIN. TOOK MUSCLE RELAXER AROUND 1400 THAT DID NOT HELP js
--- NOTE | 2024-06-27 20:32 | EDPHYS ---
Physician Documentation [facility] Name: Amber Owusu Age: 23 yrs Sex: Female : 2000 Arrival Date: 06/27/2024 Time: 17:49 Bed 19 Private MD: ED Physician Yoni Burns HPI: 06/27 18:36 This 23 yrs old Female presents to ER via Wheelchair with complaints of Low lynda Back Pain, Leg Pain. 18:36 The patient presents with pain that is acute, and decreased range of motion. The lynda symptoms are located in the low back, lumbar area, left low back and right low back. The pain does not radiate. The problem was sustained from a direct blow, during a fall. Onset: The symptoms/episode began/occurred 1 week(s) ago. Modifying factors: The patient symptoms are alleviated by nothing, the patient symptoms are aggravated by any movement. Associated signs and symptoms: Pertinent positives: TACHY. Severity of symptoms: At their worst the symptoms were moderate, in the emergency department the symptoms are unchanged. The patient has not experienced similar symptoms in the past. 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 - Infectious Disease History:: Denies. - Social history:: Smoking status: Patient denies any tobacco usage or history of. - Family history:: not pertinent. ROS: 18:38 Constitutional: Negative for fever, chills, and weight loss, Eyes: Negative for injury, lynda pain, redness, and discharge, ENT: Negative for injury, pain, and discharge, Neck: Negative for injury, pain, and swelling, Cardiovascular: Negative for chest pain, palpitations, and edema, Respiratory: Negative for shortness of breath, cough, wheezing, and pleuritic chest pain, Abdomen/GI: Negative for abdominal pain, nausea, vomiting, diarrhea, and constipation, : Negative for injury, bleeding, discharge, and swelling, MS/Extremity: Negative for injury and deformity, Skin: Negative for injury, rash, and discoloration, Neuro: Negative for headache, weakness, numbness, tingling, and seizure, Psych: Negative for depression, anxiety, suicide ideation, homicidal ideation, and hallucinations, Allergy/Immunology: Negative for hives, rash, and allergies, Endocrine: Negative for neck swelling, polydipsia, polyuria, polyphagia, and marked weight changes, Hematologic/Lymphatic: Negative for swollen nodes, abnormal bleeding, and unusual bruising, 18:38 Back: Positive for decreased range of motion, pain at rest, pain with movement, radiated pain, of the left low back and right low back, Exam: 18:38 Constitutional: This is a well developed, well nourished patient who is awake, alert, lynda and in no acute distress. Head/Face: Normocephalic, atraumatic. Eyes: Pupils equal round and reactive to light, extra-ocular motions intact. Lids and lashes normal. Conjunctiva and sclera are non-icteric and not injected. Cornea within normal limits. Periorbital areas with no swelling, redness, or edema. ENT: Nares patent. No nasal discharge, no septal abnormalities noted. Tympanic membranes are normal and external auditory canals are clear. Oropharynx with no redness, swelling, or masses, exudates, or evidence of obstruction, uvula midline. Mucous membranes moist. Neck: Trachea midline, no thyromegaly or masses palpated, and no cervical lymphadenopathy. Supple, full range of motion without nuchal rigidity, or vertebral point tenderness. No Meningismus. Chest/axilla: Normal chest wall appearance and motion. Nontender with no deformity. No lesions are appreciated. Cardiovascular: Regular rate and rhythm with a normal S1 and S2. No gallops, murmurs, or rubs. Normal PMI, no JVD. No pulse deficits. Respiratory: Lungs have equal breath sounds bilaterally, clear to auscultation and percussion. No rales, rhonchi or wheezes noted. No increased work of breathing, no retractions or nasal flaring. Abdomen/GI: Soft, non-tender, with normal bowel sounds. No distension or tympany. No guarding or rebound. No evidence of tenderness throughout. Skin: Warm, dry with normal turgor. Normal color with no rashes, no lesions, and no evidence of cellulitis. MS/ Extremity: Pulses equal, no cyanosis. Neurovascular intact. Full, normal range of motion., bilateral aka Neuro: Awake and alert, GCS 15, oriented to person, place, time, and situation. Cranial nerves II-XII grossly intact. Motor strength 5/5 in all extremities. Sensory grossly intact. Cerebellar exam normal. Normal gait. Psych: Awake, alert, with orientation to person, place and time. Behavior, mood, and affect are within normal limits. 18:38 Back: pain, that is moderate, ROM is painful, normal spinal alignment noted, CVA tenderness, is absent, muscle spasm, is appreciated in the left low back, left mid back, right mid back and right low back, Vital Signs: 18:02 BP 117 / 86; Pulse 127; Resp 20; Temp 99.6(O); Pulse Ox 99% ; Weight 81.65 kg; Height 5 db ft. 8 in. ; Pain 9/10; 19:00 BP 129 / 93; Pulse 92; Resp 16; Pulse Ox 100% ; me1 19:12 Pain 3/10; me1 20:00 BP 118 / 82; Pulse 98; Resp 16; Temp 98.4; Pulse Ox 100% ; me1 18:02 Body Mass Index 27.37 (81.65 kg, 172.72 cm) db 18:02 Pain Scale: Adult db 19:12 Pain Scale: Adult me1 MDM: 17:57 Medical Screening Exam initiated lynda 18:39 Differential diagnosis: arthritis, strain, fracture, sciatica, contusion, Herniated lynda disc UTI. Data reviewed: vital signs, nurses notes, lab test result(s), radiologic studies, CT scan. Consideration of Admission/Observation Escalation of care including admission/observation considered. I considered the following discharge prescriptions or medication management in the emergency department Medications were administered in the Emergency Department. See MAR. Independent interpretation of the following test(s) in the Emergency Department CT Scan: My interpretation is CT LUMBAR. Test considered but Not performed: MRI: NO MRI SPINE. Historians other than the Patient: Spouse/Significant Other: SIG OTHER. Care significantly affected by the following chronic conditions: DEPRESSION, BIPOLAR, ANXIETY, ADD,ADHD. 06/27 18:30 Order name: CBC with Diff; Complete Time: 19:16 [facility] 06/27 18:30 Order name: Comprehensive Metabolic Panel; Complete Time: 19:16 [facility] 06/27 18:30 Order name: Urinalysis w/ reflexes; Complete Time: 19:16 [facility] 06/27 18:30 Order name: PREGU; Complete Time: 19:16 [facility] 06/27 18:30 Order name: CT Lumbar Spine Wo Con; Complete Time: 20:31 lynda Administered Medications: 18:57 Drug: NS 0.9% IV 1000 ml IV at 1000 ml once; to be given as a bolus over 60 minutes me1 Route: IV; Rate: 1000 ml; Site: right antecubital; 20:32 Follow up: Response: No adverse reaction; IV Status: Completed infusion; IV Intake: me1 1000ml 18:58 Drug: Ondansetron IVP 4 mg IVP once; over 2 minutes Route: IVP; Site: right antecubital;me1 19:11 Follow up: Response: No adverse reaction; Nausea is decreased me1 19:08 Drug: Diazepam PO 10 mg PO once Route: PO; me1 19:12 Follow up: Response: No adverse reaction; Pain is decreased me1 19:08 Drug: morphine IVP or IV 4 mg IVP once over 4 mins Route: IVP; Infused Over: 4 mins; me1 Site: right antecubital; 19:12 Follow up: Pain 3/10 Adult; Response: No adverse reaction; Pain is decreased me1 19:09 Drug: Ketorolac IVP 30 mg IVP once Route: IVP; Site: right antecubital; me1 19:12 Follow up: Response: No adverse reaction; Pain is decreased me1 19:09 Drug: Decadron - Dexamethasone IVP 10 mg IVP once Route: IVP; Site: right antecubital; me1 19:11 Follow up: Response: No adverse reaction me1 Disposition Summary: 06/27/24 20:31 Discharge Ordered Notes: Location: Home lynda Problem: new lynda Symptoms: have improved lynda Condition: Stable lynda Diagnosis - Sciatica lynda - Strain of muscle, fascia and tendon of abdomen, lower back and pelvis lynda - Low back pain lynda - Radiculopathy, lumbar region lynda - Radiculopathy, lumbosacral region lynda Followup: lynda - With: Private Physician - When: 2 - 3 days - Reason: Recheck today's complaints, Continuance of care, Re-evaluation by your physician Followup: lynda - With: Heath Jaimes MD - When: 2 - 3 days - Reason: Recheck today's complaints, Re-evaluation by your physician Discharge Instructions: - Discharge Summary Sheet lynda - Acute Back Pain, Adult lynda - Lumbosacral Radiculopathy ylnda - Musculoskeletal Pain lynda - Radicular Pain [facility] Forms: - Medication Reconciliation Form lynda - Antibiotic Education lynda - Prescription Opioid Use lynda - Patient Portal Instructions lynda - Leadership Thank You Letter [facility] Prescriptions: - dexamethasone 4 mg Oral tablet - take 1 tablet ORAL route once daily; 5 tablet; Refills: 0, Product Selection [facility] Permitted - Ibuprofen 600 mg Oral Tablet - take 1 tablet ORAL route every 6 hours As needed take with food; 30 tablet; lynda Refills: 0, Product Selection Permitted - methocarbamol 750 mg Oral tablet - take 1 tablet ORAL route every 4 hours; 30 tablet; Refills: 0, Product lynda Selection Permitted Signatures: Dispatcher [employer] EDYoni Reid MD MD cha Benton, Danielle, RN RN db Khloe Martinez, RN RN me1 Corrections: (The following items were deleted from the chart) 18:31 18:31 CBC+H.LAB.BRZ ordered. EDMS EDMS 18:31 18:31 COMPREHENSIVE METABOLIC PANEL+C.LAB.BRZ ordered. EDMS EDMS 18:31 18:31 Urinalysis+U.LAB.BRZ ordered. EDMS EDMS 18:31 18:31 Test, Urine+UC.LAB.BRZ ordered. EDMS EDMS 18:31 18:31 Spine Lumbar Wo Con+CT.RAD.BRZ ordered. EDMS EDMS
[2024-06-27 21:08] VITALS: O2SAT 100
[2024-06-27 21:14] VITALS: BP 118/82; TEMP 98.4
== END 2024-06-27 20:46 | disposition home or self-care (01) ==
LOC: ER 17:49
DX: M54.30 Sciatica, unspecified side (principal); S39.012A Strain of muscle, fascia and tendon of lower back, initial encounter; S39.013A Strain of muscle, fascia and tendon of pelvis, initial encounter; M54.16 Radiculopathy, lumbar region; M54.17 Radiculopathy, lumbosacral region
CPT/HCPCS: 36415; 72131; 80053; 81001; 81025; 85025; 96361; 96374; 96375; 99284; J1100; J2405; J3360; J7030